=== PATIENT | male | born 1930 | race Caucasian/White ===

== ENCOUNTER 2017-11-17 11:08 | Inpatient (IN) | payer OTHER, MEDICARE ==
[~2017-11-17] VITALS: Ht 180.3 cm; Wt 63.2 kg
[~2017-11-17 11:08] MED LIST: AUGMENTIN 875-1 EACH PO; HYDROCHLOROTH12.5 M2 PO
--- NOTE | 2017-11-17 11:26 | ED UPPER/LOWER EXTREMITY COMPL ---
History of Present Illness General Chief Complaint: General Adult Stated Complaint: CELLULITIS OF L FOOT Source: patient, old records Exam Limitations: no limitations Vital Signs & Intake/Output Vital Signs & Intake/Output Vital Signs Date Time Temp Pulse Resp B/P B/P Pulse O2 O2 Flow FiO2 Mean Ox Delivery Rate 11/17 1121 96.9 127 16 152/68 98 Allergies Coded Allergies: No Known Allergies (10/18/17) Reconcile Medications Amoxicillin/Potassium Clav (Augmentin 875-125 Tablet) 875 MG-125 MG TABLET 1 TAB PO BID cellulitis Hydrochlorothiazide 12.5 MG TABLET 1 TAB PO DAILY HTN Triage Note: PT PRESENTS TO THE ER C/O LEFT BIG TOE PAIN. TOE IS RED AND SWOLLEN WITH NECROTIC TISSUE. PER PT HE WAS SEEN HERE IN THE ER AND SENT HOME WITH ANTIBIOTICS.. PT DID NOT MAKE FOLLOW UP APPOINTMENT WITH [facility] PER DC PAPER WORK. Triage Nurses Notes Reviewed? yes HPI: 87M PMH HTN, 30 days ago cut the tip of his left great toe with a scissor while trying to cut his toenails, presented to ED 3 days ago with erythema and warmth of the great toe and foot, given Augmentin, returns today with no improvement in erythema. Patient denies any pain, feels well otherwise, just notices swelling and erythema that is worse when he stands up. There is a 3cm eschar on the tip of his toe with no discharge present. He denies any systemic symptoms. Past History Travel History Traveled to [place] past 21 day No Medical History Any Pertinent Medical History? 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 No Review of Systems Review of Systems Constitutional: Reports: no symptoms. EENTM: Reports: no symptoms. Respiratory: Reports: no symptoms. Cardiovascular: Reports: no symptoms. Gastrointestinal/Abdominal: Reports: no symptoms. Genitourinary: Reports: no symptoms. Musculoskeletal: Reports: no symptoms. Skin: Reports: no symptoms. Neurological/Psychological: Reports: no symptoms. Hematologic/Endocrine: Reports: no symptoms. Immunological: Reports: no symptoms. All Other Systems: Reviewed and Negative Physical Exam Physical Exam General Appearance: well developed/nourished, no apparent distress, mild distress Head: atraumatic, normal appearance Eyes: Bilateral: normal appearance. Ears, Nose, Throat: hearing grossly normal Neck: normal inspection, supple Cardiovascular/Respiratory: regular rate/rhythm Back: normal inspection, normal range of motion Foot Left: 3cm eschar on tip, no discharge, erythema of entire great toe spreading to dorsal foot, +warmth, -tenderness, sensation intact, pulses intact, full ROM Foot Right: normal inspection, normal range of motion Skin: intact, normal color, warm/dry Lymphatic: no anterior cervical harsh Progress Differential Diagnosis: arterial insufficiency, cellulitis, CHF, compartment syndrome, contusion, dislocation, DVT, fracture, gout, septic arthritis, sprain, tendon injury Plan of Care: Orders Procedure Date/time Status EKG 11/17 1240 Active BLOOD CULTURE 11/17 112 Active COMPREHENSIVE METABOLIC PANEL 11/17 112 Complete CBC WITHOUT DIFFERENTIAL 11/17 112 Complete EKG 11/17 112 Active Current Medications Sig/Tiffanie Start time Last Medication Dose Stop Time Status Admin Cefazolin Sodium 1,000 MG ONCE ONE 11/17 1245 AC (Kefzol-Ancef Inj) 11/17 1246 Laboratory Tests 11/17/17 1144: Anion Gap 16, Estimated GFR 52 L, BUN/Creatinine Ratio 16.2, Glucose 216 H, Calcium 9.6, Total Bilirubin 0.8, AST 15 L, ALT 17 L, Alkaline Phosphatase 59, Total Protein 7.8, Albumin 4.6, Globulin 3.2, Albumin/Globulin Ratio 1.4, CBC w Diff NO MAN DIFF REQ, RBC 4.32 L, MCV 88.7, MCH 29.4, MCHC 33.1, RDW 13.5, MPV 8.3, Gran % 67.8, Lymphocytes % 23.9, Monocytes % 5.8, Eosinophils % 2.0, Basophils % 0.5, Absolute Granulocytes 5.7, Absolute Lymphocytes 2.0, Absolute Monocytes 0.5, Absolute Eosinophils 0.2, Absolute Basophils 0 Microbiology 11/17 1229 BLOOD: Blood Culture - RECD 11/17 1145 BLOOD: Blood Culture - RECD Departure Departure Disposition: STILL A PATIENT Condition: Stable Clinical Impression Primary Impression: Cellulitis of left foot Secondary Impressions: Failure of outpatient treatment, Hyperglycemia Referrals: Ash ALEX,Douglas Chacon (PCP/Family) Departure Forms: Customer Survey General Discharge Information Admission Note Spoke With: Zina ALEX,Franny Pittman Documentation of Exam: Documentation of any treatments & extenuating circumstances including Concerns Regarding Discharge (functional status, medication knowledge or non-compliance, living conditions, etc.) that warrant an admission rather than observation: LEFT TOE AND FOOT CELLULITIS FAILING OUTPATIENT ANTIBIOTICS WITH WORSENING ERYTHEMA OF THE FOOT, WITH TOE WOUND REQUIRING PODIATRY INTERVENTION, NO PRIOR HISTORY OF DIABETES WITH GLUCOSE 210 WILL REQUIRE WORKUP, WILL ADMIT FOR IV ANTIBIOTICS, PODIATRY CONSULT, POSSIBLE ENDOCRINE CONSULT, BLOOD CULTURES
[2017-11-17 12:00] LABS: ABSOLUTE BASOPHIL COUNT 0 /CUMM (0.0-0.2); ABSOLUTE EOSINOPHIL COUNT 0.2 /CUMM (0.0-0.7); ABSOLUTE GRANULOCYTE CT 5.7 /CUMM (1.4-6.5); ABSOLUTE MONOCYTE COUNT 0.5 /CUMM (0.10-0.60); BASOPHIL % 0.5 % (0.0-2.0); GRANULOCYTE % 67.8 % (42.2-75.2); HEMATOCRIT 38.3 % (42-52); MEAN CORPUSCULAR HGB 29.4 PG (27.0-31.0); MEAN CORPUSCULAR HGB CONC 33.1 G/DL (33.0-37.0); MEAN CORPUSCULAR VOLUME 88.7 FL (80.0-94.0); MEAN PLATELET VOLUME 8.3 FL (7.4-10.4); PLATELET COUNT 295 /CUMM (130-400); RBC DISTRIBUTION WIDTH 13.5 % (11.5-14.5); RED BLOOD CELL CT 4.32 /CUMM (4.70-6.10); WHITE BLOOD CELL COUNT 8.4 /CUMM (4.8-10.8)
--- NOTE | 2017-11-17 13:17 | History & Physical ---
Geoff ALEX,[facility] 11/17/17 1312: General Information and HPI MD Statement: I have seen and personally examined MARIANGEL BOOKER and documented this H&P. The patient is a 87 year old M who presented with a patient stated chief complaint of [LEFT GREAT TOE REDNESS AND SWELLING]. Source of Information: patient, family () Exam Limitations: no limitations, patient's age History of Present Illness: The patient is an 87-year-old man with a past medical history of hypertension, and previous gastric ulcer 5 years ago presents with worsening left great toe redness and swelling for 2 weeks. The patient sustained injury to his left great toe after he cut the tip off while trying to cut his toenails one month ago on 10/18/2017. He had no pain in the toe and the toe bled profusely according to patient and his was present. The ulcer did not heal and about 2 weeks ago he started to notice erythema and swelling of his left great toe. Account of these symptoms he presented to the ER 3 days ago and received by mouth Augmentin which she has been using consistently, however the surrounding toe redness and swelling has not resolved. Attributed is no discharge however his great toe has covered by a black scab. Of note patient has been having aching pain in his house when he walks for the past 7 months. He has not seen a medical doctor for over 20 years. He also has noticed a growth on his left cheek for the past 2 years. He denies fevers, chills, shortness of breath, cough, wheeze, palpitations or chest discomfort. He denies nausea, vomiting or change in bowel movements. He however has some intermittent burning sensation at the end of his urination for the past few months. He denies frequency polyuria but wakes up approximately 2 times a night to urinate. No hematuria. 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 Home Who Do You Live With? spouse Services at Home: None Smoking Status: Former Smoker (Quit 52 years ago) ETOH Use: denies use Illicit Drug Use: denies illicit drug use Functional Ability ADLs Independent: dressing, eating, toileting, bathing. 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 Denies: chills, fever, weakness. Exam & Diagnostic Data Last 24 Hrs of Vital Signs/I&O Vital Signs Date Time Temp Pulse Resp B/P B/P Pulse O2 O2 Flow FiO2 Mean Ox Delivery Rate 11/17 1322 97.9 102 18 161/72 98 Room Air 11/17 1121 96.9 127 16 152/68 98 Intake & Output 11/17 1600 11/17 0800 11/17 0000 Intake Total Output Total Balance Patient 145 lb Weight Weight Reported by Patient Measurement Method Physical Exam General Appearance Alert, Oriented X3, Cooperative, No Acute Distress Skin 3 cm ulcerated nodule with irregular edges on the left maxillary area below eyelid Skin Temp/Moisture Exam: Warm/Dry Sepsis Skin Exam (color): Normal for Ethnicity HEENT Atraumatic, PERRLA, EOMI, Mucous Membr. moist/pink Neck Supple, No JVD, No thryomegaly Lymphatic Cervical nl Cardiovascular Regular Rate, Normal S1, Normal S2, No Murmurs Lungs Clear to Auscultation, Normal Air Movement Abdomen Normal Bowel Sounds, Soft, No Tenderness, No Hepatospenomegaly, No Masses Neurological Normal Speech, Strength at 5/5 X4 Ext, Normal Tone, Cranial Nerves 3-12 NL, Reflexes 2+, Light touch sensation reduced in toes bilaterally, normal in rest of leg Extremities No Edema, Reduced dorsalis pedis pulses bilaterally, 2 cm X 2 cm ulcer on tip of left great toe involving distal nail bed. Ulcer is covered by black eschar Vascular Reduced bilateral dorsalis pedis pulses Last 24 Hrs of Labs/Gómez: Laboratory Tests 11/17/17 1144: Anion Gap 16, Estimated GFR 52 L, BUN/Creatinine Ratio 16.2, Glucose 216 H, Hemoglobin A1c Pending, Calcium 9.6, Total Bilirubin 0.8, AST 15 L, ALT 17 L, Alkaline Phosphatase 59, Total Protein 7.8, Albumin 4.6, Globulin 3.2, Albumin/ Globulin Ratio 1.4, CBC w Diff NO MAN DIFF REQ, RBC 4.32 L, MCV 88.7, MCH 29.4, MCHC 33.1, RDW 13.5, MPV 8.3, Gran % 67.8, Lymphocytes % 23.9, Monocytes % 5.8, Eosinophils % 2.0, Basophils % 0.5, Absolute Granulocytes 5.7, Absolute Lymphocytes 2.0, Absolute Monocytes 0.5, Absolute Eosinophils 0.2, Absolute Basophils 0 Microbiology 11/17 1229 BLOOD: Blood Culture - RECD 11/17 114 BLOOD: Blood Culture - RECD Diagnostic Data EKG Results Sinus rhythm. Heart rate [address] segment changes. QTc 460 MS Other Results SERVICE DATE: 11/14/17 EXAM TYPE: RAD - XRY-FOOT COMPLETE, LEFT EXAMINATION: XR FOOT, LEFT CLINICAL INFORMATION: Redness. Pain. COMPARISON: None TECHNIQUE: AP, lateral, and oblique views of the left foot. FINDINGS: No focal bony findings indicate infection. This bulky calcaneal posterior tuberosity spurring. No periosteal new bone formation. No soft tissue air. IMPRESSION: No plain radiographic evidence of osteomyelitis. Consider MRI as warranted clinically. Assessment/Plan Assessment: The patient is an 87-year-old man with a past medical history of hypertension and peptic ulcer treated with endoscopy and ? sclerotherapy injection 25 years ago was not seen a physician in 25 years. He presents with 2 weeks history of worsening left great toe erythema and swelling after suffering a cut to that toe that has not healed since one month ago. He has failed outpatient Augmentin therapy and will need to be admitted for IV antibiotics. In addition he has symptoms of peripheral vascular disease with claudication in his legs, and he also has elevated glucose consistent with undiagnosed diabetes mellitus. He will be admitted and evaluated by podiatry for his left big toe ulcer. In addition we'll obtain a vascular surgery consultation to assess his left foot blood supply. His blood pressure is elevated despite being on hydrochlorothiazide 12.5 mg daily and we will add additional blood pressure medication for better control. Problem list 1. Left toe cellulitis/Left toe nonhealing ulcer 2. Peripheral vascular disease 3. Diabetes mellitus 4. Hypertension 5. Acute kidney injury 6. Left facial lesion probably basal cell carcinoma Plan 1. Left toe cellulitis/left toe nonhealing ulcer * Admit to general medicine * Start IV Unasyn 3 g every 6 hours * Follow-up blood cultures * Podiatry consultation 2. Peripheral vascular disease * Vascular surgery consultation * Will defer imaging with Arterial doppler ultrasound vs CT angiogram with runoff to vascular surgeon * Start aspirin 81 mg daily * Check lipid panel in a.m. 3. Diabetes mellitus * Accu-Cheks 3 times a day before meals * NovoLog sliding scale * Check HbA1c 4. Hypertension * Start amlodipine 5 mg daily * Will switch to an ARB if patient's creatinine improves * Continue hydrochlorothiazide 12.5 mg daily 5. Acute kidney injury * Gentle hydration with IV normal saline at 50 mL an hour * Encourage liberal fluid intake * Repeat BEP to monitor creatinine in a.m. 6. 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 Hyperglycemia 2. Cellulitis of left foot 3. Failure of outpatient treatment 4. Avulsion of skin of toe Core Measures/Misc (05/06) Acute Coronary Syndrome ACS Diagnosis: No Congestive Heart Failure Congestive Heart Failure Diagnosis No Cerebrovascular Accident CVA/TIA Diagnosis: No VTE (View Protocol) VTE Risk Factors Vericose Veins No Mechanical VTE Prophylaxis d/t N/A MechProphylax Ordered No VTE Pharm Prophylaxis d/t NA PharmProphylax ordered Sepsis (View protocol) Sepsis Present: No Franny Izaguirre MD 11/17/17 1526: Attending MD Review Statement Attending Statement Attending MD Statement: examined this patient, discuss w/resident/PA/CASE MANAGEMENT ASSISTANT, agreed w/resident/PA/CASE MANAGEMENT ASSISTANT, discussed with family, reviewed EMR data (avail), reviewed images Attending Assessment/Plan: 87-year-old male past medical history of hypertension, has not seen a doctor in over 15 years. Recently moved from [place]. All of his current symptoms started after he accidentally cut off piece of his left great toe while cutting his nails on March 1. Showed up in the emergency room 4 days ago on November 14 with pain and swelling and was prescribed Augmentin. Returns with what appears to be an acute cellulitis in the setting of this ulcer on the left great toe. Given the failure of by mouth Augmentin will switch him to IV antibiotics. I don't have a suspicion for MRSA and I think we need to cover staph and strep given likely underlying diabetes. I am comfortable with IV Unasyn and its coverage after blood cultures obtained. The bigger issue is the underlying diabetes likely and likely peripheral arterial disease. He has poor pulses and has hyperglycemia. We'll check a hemoglobin A1c and put him on fingersticks with regular insulin sliding scale. We'll get vascular to see him, start him on baby aspirin and check his lipid panel. Ultimately I think he will benefit from an arb for his hypertension but now given the NORMA will stay with Norvasc and gentle hydration. DVT prophylaxis and Follow closely.
--- NOTE | 2017-11-17 14:36 | Admission Certification ---
Admission Certification Certification Statement - As attending physician, I certify that at the time of - admission, based on clinical presentation, severity of - symptoms, need for further diagnostic testing and - therapeutic interventions, and risk of adverse outcomes - without in-hospital treatment, in my clinical assessment, - this patient requires an acute hospital stay for a minimum - of two nights or longer. I have also considered psychsocial - factors such as support system, advanced age, financial - issues, cognitive issues, and failed out-patient treatments, - past re-admission history, safety of patient, and lack of - compliance as applicable. Specific rationale supporting this admission is: Acute cellulitis of the toe failed outpatient oral antibiotics
[2017-11-17 15:22] VITALS: BP 130/60
--- NOTE | 2017-11-17 16:14 | Cons- Podiatry ---
General Information and HPI Consulting Request Date of Consult: 11/17/17 Requested By: Zina ALEX,Franny Pittman History of Present Illness: Victor M is an 87-year-old male with a history of hypertension who presented to the ED 2 days ago for a complaint of redness and swelling to his left great toe, status post nail-cutting injury with a tuan. The patient returned today without improvement despite by mouth antibiotics and is now admitted for treatment of a left lower extremity cellulitis. The patient denies systemic signs of infection. Patient denies nausea, vomiting, fever chills. 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 Home Who Do You Live With? spouse Services at Home: None Smoking Status: Former Smoker (Quit 52 years ago) ETOH Use: denies use Illicit Drug Use: denies illicit drug use Functional Ability ADLs Independent: dressing, eating, toileting, bathing. Ambulation: cane Employment History Employment: Retired Profession/Employer: [email or web address] Review of Systems Review of Systems: Unremarkable except for that noted in his present illness Exam & Diagnostic Data Vital Signs and I&O Vital Signs Date Time Temp Pulse Resp B/P B/P Pulse O2 O2 Flow FiO2 Mean Ox Delivery Rate 11/17 1522 97.6 92 20 130/60 96 Room Air 11/17 1459 97.9 102 18 161/72 11/17 1322 97.9 102 18 161/72 98 Room Air 11/17 1121 96.9 127 16 152/68 98 Intake & Output 11/17 1600 11/17 0800 11/17 0000 11/16 1600 11/16 0800 11/16 0000 Intake Total Output Total Balance Patient 145 lb Weight Weight Reported by Patient Measurement Method Physical Exam: 2 cm x 0.5 cm necrotic eschar noted to the distal left great toe. Cellulitis noted to the dorsum of the foot extending to the ankle area. No active drainage noted from the wound. No crepitus or fluctuance identified. Pedal pulses nonpalpable. Assessment/Plan Assessment/Plan Necrotic ulcer left great toe with left lower Gaby cellulitis. Consider an x- ray of the left foot to rule out an osteomyelitis. Consider an arterial ultrasound of the left lower extremity and a vascular consult. For now, recommend Xeroform and a dry sterile dressing to the left great toe. IV antibiotics per medicine recommendations. Consult Acknowledgment - Thank you for your consult request. Attending MD Review Statement Attending Statement Attending MD Statement: examined this patient
--- NOTE | 2017-11-17 20:36 | Cons- Vascular Surgery ---
General Information and HPI Consulting Request Date of Consult: 11/17/17 Requested By: Franny Izaguirre MD Reason for Consult: Left toe infection Source of Information: patient, old records History of Present Illness: This is an 87 year-old male with a history of hypertension who was admitted with left toe nonhealing ulcer and surrounding cellulitis after failed outpatient antibiotic therapy. Patient reports injuring the top of his toe one month ago while attempting to clip his toenails with sheers. He was evaluated two day later in the ER because his toe had not stopped bleeding. He had bacitrican ointment, a dressing was applied and he was told to elevate his leg. He was also found to have hypertension and was started on hydrochlorothiazide. He returned to the ER 2 days ago after he noticed an increase in redness. He was provided with a 10 day course of Augmentin, however, the redness worsened and he returned back to the ER. He denies any pain or drainage, nausea, vomting, fever or chills. He reports ambulating independently without any assisted devices. Allergies/Medications Allergies: Coded Allergies: No Known Allergies (10/18/17) Home Med List: Amoxicillin/Potassium Clav (Augmentin 875-125 Tablet) 875 MG-125 MG TABLET 1 TAB PO BID cellulitis Hydrochlorothiazide 12.5 MG TABLET 1 TAB PO DAILY HTN Current Medications: Current Medications Sig/Tiffanie Start time Last Medication Dose Route Stop Time Status Admin Amlodipine Besylate 0 .STK-MED ONE 11/17 1500 DC PO Amlodipine Besylate 5 MG DAILY 11/17 1445 AC 11/17 PO 1459 Ampicillin Sodium/ 3,000 MG Q6 11/17 1800 AC 11/17 Sulbactam Sodium IV 1839 Sodium Chloride 100 ML Aspirin 0 .STK-MED ONE 11/17 1500 DC PO Aspirin Buffered 81 MG DAILY 11/17 1445 AC 11/17 PO 1459 Cefazolin Sodium 1,000 MG Q8H 11/17 2100 CAN IV Cefazolin Sodium 0 .STK-MED ONE 11/17 1251 DC .ROUTE Cefazolin Sodium 1,000 MG ONCE ONE 11/17 1245 DC 11/17 IV 11/17 1246 1258 Heparin Sodium 0 .STK-MED ONE 11/17 1500 DC (Porcine) .ROUTE Heparin Sodium 5,000 UNIT Q8 11/17 1413 AC 11/17 (Porcine) SC 1451 Hydrochlorothiazide 12.5 MG DAILY 11/18 1000 AC PO Hydrochlorothiazide 12.5 MG BID 11/17 2200 DC PO Insulin Aspart 0 TIDAC 11/17 1700 AC SC Sodium Chloride 1,000 ML Q20H 11/17 1415 AC 11/17 IV 1446 Past History Medical History Neurological: NONE EENT: NONE Cardiovascular: hypertension Respiratory: NONE Gastrointestinal: NONE Hepatic: NONE Renal: NONE Musculoskeletal: NONE Psychiatric: NONE Endocrine: NONE Blood Disorders: NONE Cancer(s): NONE [employer]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 Home Who Do You Live With? spouse Services at Home: None Smoking Status: Former Smoker (Quit 52 years ago) ETOH Use: denies use Illicit Drug Use: denies illicit drug use Functional Ability ADLs Independent: dressing, eating, toileting, bathing. Ambulation: cane Employment History Employment: Retired Profession/Employer: [employer] Review of Systems Review of Systems: Constitutional: Reports: no symptoms. EENTM: Reports: no symptoms. Respiratory: Reports: no symptoms. Cardiovascular: Reports: no symptoms. Gastrointestinal/Abdominal: Reports: no symptoms. Genitourinary: Reports: no symptoms. Musculoskeletal: Reports: no symptoms. Skin: Reports: see HPI. Neurological/Psychological: Reports: no symptoms. Hematologic/Endocrine: Reports: no symptoms. Immunological: Reports: no symptoms. All Other Systems: Reviewed and Negative Exam & Diagnostic Data Vital Signs and I&O Vital Signs Date Time Temp Pulse Resp B/P B/P Pulse O2 O2 Flow FiO2 Mean Ox Delivery Rate 11/17 1522 97.6 92 20 130/60 96 Room Air 11/17 1459 97.9 102 18 161/72 11/17 1322 97.9 102 18 161/72 98 Room Air 11/17 1121 96.9 127 16 152/68 98 Intake & Output 11/17 1600 11/17 0800 11/17 0000 11/16 1600 11/16 0800 11/16 0000 Intake Total Output Total Balance Patient 145 lb Weight Weight Reported by Patient Measurement Method Physical Exam: Gen - resting comfortably, accompained by his son in nad Skin - Left distal toe with a 2 cm x 0.5 cm necrotic eschar with surrounding cellulitis extending medially from the dorsum of the foot to the ankle, no active drainage, edema or induration noted, no palpable DP noted, palpable right DP, bilateral PT noted, no edema or calf tenderness B/L Last 24 Hours of Labs: Laboratory Tests 11/17 1144 Chemistry Sodium (137 - 145 mmol/L) 140 Potassium (3.5 - 5.1 mmol/L) 4.0 Chloride (98 - 107 mmol/L) 96 L Carbon Dioxide (22 - 30 mmol/L) 28 Anion Gap (5 - 16) 16 BUN (9 - 20 mg/dL) 21 H Creatinine (0.7 - 1.2 mg/dL) 1.3 H Estimated GFR (>60 ml/min) 52 L BUN/Creatinine Ratio (7 - 25 %) 16.2 Glucose (65 - 99 mg/dL) 216 H Hemoglobin A1c (4.2 - 5.8 %) Pending Calcium (8.4 - 10.2 mg/dL) 9.6 Total Bilirubin (0.2 - 1.3 mg/dL) 0.8 AST (17 - 59 U/L) 15 L ALT (21 - 72 U/L) 17 L Alkaline Phosphatase (< 127 U/L) 59 Total Protein (6.3 - 8.2 g/dL) 7.8 Albumin (3.5 - 5.0 g/dL) 4.6 Globulin (1.9 - 4.2 gm/dL) 3.2 Albumin/Globulin Ratio (1.1 - 2.2 %) 1.4 Hematology CBC w Diff NO MAN DIFF REQ WBC (4.8 - 10.8 /CUMM) 8.4 RBC (4.70 - 6.10 /CUMM) 4.32 L Hgb (14.0 - 18.0 G/DL) 12.7 L Hct (42 - 52 %) 38.3 L MCV (80.0 - 94.0 FL) 88.7 MCH (27.0 - 31.0 PG) 29.4 MCHC (33.0 - 37.0 G/DL) 33.1 RDW (11.5 - 14.5 %) 13.5 Plt Count (130 - 400 /CUMM) 295 MPV (7.4 - 10.4 FL) 8.3 Gran % (42.2 - 75.2 %) 67.8 Lymphocytes % (20.5 - 51.1 %) 23.9 Monocytes % (1.7 - 9.3 %) 5.8 Eosinophils % (0 - 5 %) 2.0 Basophils % (0.0 - 2.0 %) 0.5 Absolute Granulocytes (1.4 - 6.5 /CUMM) 5.7 Absolute Lymphocytes (1.2 - 3.4 /CUMM) 2.0 Absolute Monocytes (0.10 - 0.60 /CUMM) 0.5 Absolute Eosinophils (0.0 - 0.7 /CUMM) 0.2 Absolute Basophils (0.0 - 0.2 /CUMM) 0 Imaging Results: SERVICE DATE: 11/14/17 EXAM TYPE: RAD - XRY-FOOT COMPLETE, LEFT EXAMINATION: XR FOOT, LEFT CLINICAL INFORMATION: Redness. Pain. COMPARISON: None TECHNIQUE: AP, lateral, and oblique views of the left foot. FINDINGS: No focal bony findings indicate infection. This bulky calcaneal posterior tuberosity spurring. No periosteal new bone formation. No soft tissue air. IMPRESSION: No plain radiographic evidence of osteomyelitis. Consider MRI as warranted clinically. Assessment/Plan Assessment/Plan This is an 87 year-old male with a left great toe necrotic ulcer with cellulitis , without evidence of osteomyelitis on x-ray Recommend arterial ultrasound of the left lower extremity Continue IV Unasyn Continue podiatry care Will continue to follow Discussed with Dr. Schreiber who is in agreement Consult Acknowledgment - Thank you for your consult request.
[2017-11-17 22:19] VITALS: BP 132/60
[2017-11-18 06:29] VITALS: BP 160/72
--- NOTE | 2017-11-18 09:16 | PN- Housestaff ---
See Addendum Subjective Follow-up For: Left toe cellulitis Subjective: No overnight events. No fevers, chest pain, abdominal pain, or other complaints. He slept well. Review of Systems Constitutional: Reports: no symptoms. EENTM: Reports: no symptoms. Cardiovascular: Reports: no symptoms. Respiratory: Reports: no symptoms. Gastrointestinal: Reports: no symptoms. Genitourinary: Reports: no symptoms. Musculoskeletal: Reports: no symptoms. Skin: Reports: no symptoms. Neurological/Psychological: Reports: no symptoms. Hematologic/Endocrine: Reports: no symptoms. Immunologic/Allergic: Reports: no symptoms. Objective Last 24 Hrs of Vital Signs/I&O Vital Signs Date Time Temp Pulse Resp B/P B/P Pulse O2 O2 Flow FiO2 Mean Ox Delivery Rate 11/18 628 97.2 70 16 160/72 98 Room Air 11/17 2219 98.1 75 18 132/60 98 11/17 1522 97.6 92 20 130/60 96 Room Air 11/17 1459 97.9 102 18 161/72 11/17 1322 97.9 102 18 161/72 98 Room Air 11/17 1121 96.9 127 16 152/68 98 Intake & Output 11/18 1600 11/18 0800 11/18 0000 Intake Total 400 230 Output Total Balance 400 230 Intake, IV 400 130 Intake, Oral 100 Number 1 Bowel Movements Patient 65.998 kg 63.503 kg Weight Weight Bed scale Bed scale Measurement Method Physical Exam General Appearance: Alert, Oriented X3, Cooperative, No Acute Distress Cardiovascular: Regular Rate, Normal S1, Normal S2 Lungs: Clear to Auscultation Abdomen: Normal Bowel Sounds, Soft, No Tenderness Extremities: left toe wrapped Assessment/Plan Assessment: The patient is an 87-year-old man with a past medical history of hypertension and peptic ulcer treated with endoscopy and ? sclerotherapy injection 25 years ago was not seen a physician in 25 years. He presents with 2 weeks history of worsening left great toe erythema and swelling after suffering a cut to that toe that has not healed since one month ago. He has failed outpatient Augmentin therapy and will need to be admitted for IV antibiotics. In addition he has symptoms of peripheral vascular disease with claudication in his legs, and he also has elevated glucose consistent with undiagnosed diabetes mellitus. He will be admitted and evaluated by podiatry for his left big toe ulcer. In addition we'll obtain a vascular surgery consultation to assess his left foot blood supply. His blood pressure is elevated despite being on hydrochlorothiazide 12.5 mg daily and we will add additional blood pressure medication for better control. Problem list 1. Left toe cellulitis/Left toe nonhealing ulcer 2. Peripheral vascular disease 3. Diabetes mellitus 4. Hypertension 5. Acute kidney injury 6. Left facial lesion probably basal cell carcinoma Plan 1. Left toe cellulitis/left toe nonhealing ulcer * IV Unasyn 3 g every 6 hours * Follow-up blood cultures * Podiatry consultation 2. Peripheral vascular disease * Vascular surgery consultation * Start aspirin 81 mg daily * Check lipid panel in a.m. 3. Diabetes mellitus * Accu-Cheks 3 times a day before meals * NovoLog sliding scale * Check HbA1c 4. Hypertension * Start amlodipine 5 mg daily * Will switch to an ARB if patient's creatinine improves * Continue hydrochlorothiazide 12.5 mg daily 5. Acute kidney injury * Gentle hydration with IV normal saline at 50 mL an hour * Encourage liberal fluid intake * Repeat BEP to monitor creatinine in a.m. 6. Left facial lesion probably basal cell carcinoma * Will recommend outpatient follow-up with hotel engineer and refer patient on discharge\ Follow-up hemoglobin A1c an ultrasound today. We will also follow up podiatry and vascular surgery recommendations. DVT prophylaxis: Subcutaneous heparin Diet: Diabetic diet consistent carbohydrate 1 CODE STATUS: Full code Problem List: 1. Cellulitis of left foot Pain Ratin Pain Location: no Pain Goal: Remain pain free Pain Plan: see a/p Tomorrow's Labs & Rationales: bep
[2017-11-18 13:50] VITALS: BP 132/56
[2017-11-18 22:03] VITALS: BP 124/60
--- NOTE | 2017-11-19 05:11 | Event Note ---
Event Note Event Note: Embedded Case Manager was informed by radiologist that patient's ultrasound prelim reading was significant for left femoral-popliteal moderate to high-grade stenosis with no evidence of inflow disease. Called and spoke to [facility] radiology and was told that formal report is not available at this time as the image was read remotely. Informed Millie (Surgical PA).
[2017-11-19 06:43] VITALS: BP 140/70
--- NOTE | 2017-11-19 06:56 | PN- Housestaff ---
See Addendum Subjective Follow-up For: Left toe cellulitis Subjective: No ovenright events. Patient slept well last night. He does say that he has about 2 liquidy bowel movements a day since starting antibiotics. He doesn't have any chest pain, fever, night sweats, chills, shortness of breath, or other issues. Review of Systems Constitutional: Reports: no symptoms. EENTM: Reports: no symptoms. Cardiovascular: Reports: no symptoms. Respiratory: Reports: no symptoms. Gastrointestinal: Reports: see HPI. Genitourinary: Reports: no symptoms. Musculoskeletal: Reports: no symptoms. Skin: Reports: no symptoms. Neurological/Psychological: Reports: no symptoms. Hematologic/Endocrine: Reports: no symptoms. Immunologic/Allergic: Reports: no symptoms. Objective Last 24 Hrs of Vital Signs/I&O Vital Signs Date Time Temp Pulse Resp B/P B/P Pulse O2 O2 Flow FiO2 Mean Ox Delivery Rate 11/19 0643 97.9 80 20 140/70 98 Room Air 11/18 2203 98.3 83 20 124/60 98 Room Air 11/18 1350 98.6 83 20 132/56 97 Intake & Output 11/19 0800 11/19 0000 11/18 1600 Intake Total 225 1300 Output Total Balance 225 1300 Intake, IV 125 500 Intake, Oral 100 800 Patient 63.163 kg Weight Physical Exam General Appearance: Alert, Oriented X3, Cooperative, No Acute Distress Cardiovascular: Regular Rate, Normal S1, Normal S2 Lungs: Clear to Auscultation Abdomen: Normal Bowel Sounds, Soft, No Tenderness Extremities: No Edema, Normal Pulses, No Tenderness/Swelling Current Medications: Current Medications Sig/Tiffanie Start time Last Medication Dose Route Stop Time Status Admin Amlodipine Besylate 5 MG DAILY 11/17 1445 AC 11/18 PO 0959 Ampicillin Sodium/ 3,000 MG Q6 11/17 1800 AC 11/19 Sulbactam Sodium IV 0548 Sodium Chloride 100 ML Aspirin Buffered 81 MG DAILY 11/17 1445 AC 11/18 PO 0959 Heparin Sodium 5,000 UNIT Q8 11/17 1413 AC 11/19 (Porcine) SC 0548 Hydrochlorothiazide 12.5 MG DAILY 11/18 1000 AC 11/18 PO 0959 Insulin Aspart 0 TIDAC 11/17 1700 AC SC Sodium Chloride 1,000 ML Q20H 11/17 1415 DC 11/18 IV 0959 Last 24 Hrs of Lab/Gómez Results Last 24 Hrs of Labs/Mics: Laboratory Tests 11/18/17 1545: Urinalysis LIGHT H, Urine Color YEL, Urine Clarity CLDY H, Urine pH 7.0, Ur Specific Harrison 1.010, Urine Protein NEG, Urine Ketones NEG, Urine Nitrite NEG, Urine Bilirubin NEG, Urine Urobilinogen 0.2, Ur Leukocyte Esterase LARGE H, Ur Microscopic SEDIMENT EXAMINED, Urine RBC RARE, Urine WBC 50-75 H, Ur Epithelial Cells RARE, Urine Bacteria MOD H, Urine Mucus FEW, Urine Hemoglobin TRACE- INTACT H, Urine Glucose NEG 11/18/17 0810: Anion Gap 15, Estimated GFR > 60, BUN/Creatinine Ratio 15.5, Triglycerides 171 H, Cholesterol 195, LDL Cholesterol, Calc 125, HDL Cholesterol 36 L, Cholesterol/HDL Ratio 5 H Assessment/Plan Assessment: The patient is an 87-year-old man with a past medical history of hypertension and peptic ulcer treated with endoscopy and ? sclerotherapy injection 25 years ago was not seen a physician in 25 years here with left toe cellulitis after failing outpatient amoxicillin/clavulanic acid therapy. Problem list: 1. Left toe cellulitis 2. Peripheral vascular disease 3. Newly diagnosed diabetes mellitus 4. Acute kidney injury, resolved 5. 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 Hypertension 7. Diarrhea #Left toe cellulitis: Patient autoamputated the tip of his left great toe about a month ago and has been nonhealing since then. He came to the ER several times and was on Augmentin therapy but felt this. He is now on ampicillin/sulbactam and doing well. He has been afebrile without leukocytosis. We'll talk to Dr. Daly, he is not planning any surgical intervention at this time. Ultrasound did show moderate to severe femoral/popliteal disease with no definitive inflow disease. -Continue ampicillin/sulbactam -Appreciate podiatry recommendations, outpatient follow-up -Appreciate vascular surgery recognitions -Continue aspirin #Newly diagnosed Diabetes mellitus: Patient has not seen primary care but is coming with glucose that is significant elevated. Likely has type 2 diabetes mellitus that has been untreated. This is likely contributing to his poor wound healing. -Follow up hemoglobin A1c -Accu-Cheks 3 times a day before meals -NovoLog sliding scale -Outpatient primary care referral #Hypertension: Patient was previously on chlorothiazide but is still hypertensive. We will start him on DEON inhibitor given that he has diabetes. -Lisinopril 5 mg daily -continue hydrochlorothiazide 12.5 mg daily #Acute kidney injury: Resolved. This was likely prerenal azotemia. 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 It is likely basal cell carcinoma. He will likely need a biopsy. -Will recommend outpatient follow-up with venue manager and refer patient on discharge #Diarrhea: Patient has had 2 watery bowel movements per day since starting antibiotics. Likely antibiotic associated diarrhea. -Follow up C. difficile #Chronic medical problems: -Continue atorvastatin DVT prophylaxis with heparin Consistent carbohydrate one-day Full code Problem List: 1. Cellulitis of left foot Pain Ratin Pain Location: no Pain Goal: Remain pain free Pain Plan: see a/p Tomorrow's Labs & Rationales: none
--- NOTE | 2017-11-19 08:20 | ULTRASOUND REPORT ---
EXAMINATION: COLOR-FLOW DUPLEX IMAGING OF THE LEFT LOWER EXTREMITY ARTERIAL SYSTEM. VELOCITY MEASUREMENTS THROUGHOUT THE FEMORAL ARTERIES WITH PERIPHERAL ARTERIAL TESTING. 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 Peripheral arterial disease. Interventional Radiologist: Javon Salvador M.D., F.S.I.R., F.A.C.R. LEFT FEMORAL RUNOFF VELOCITIES: The left common femoral artery measures 116 cm/s. The left profunda femoral artery is 78 cm/s. Left proximal superficial femoral artery measures 57 cm/s. Mid superficial femoral artery is 58 cm/s. Distal left superficial femoral artery measures 33 cm/s. Left popliteal velocity measures 20 cm/s. The posterior tibial artery velocity measures 33 cm/s. The anterior tibial artery velocity measures 25 cm/s. The dorsalis pedis artery velocity measures 29 cm/s. The velocities appear decreased in the femoral artery, extending and worsening into the popliteal artery and tibial vessels. Diffuse scattered atherosclerotic plaque is present throughout the left lower extremity. IMPRESSION: 1. There is left lower extremity moderate-severe hemodynamically femoral-popliteal significant disease. There is no definite inflow disease demonstrated.
[2017-11-19] MEDS ORDERED: ATORVASTATIN CA10 M1 PO ×2 (10:04→15:40)
[2017-11-19] MEDS ORDERED: ASPIRIN EC81 M1 PO ×2 (10:04→15:40)
[2017-11-19] MEDS ORDERED: LISINOPRIL5 M1 PO ×2 (10:04→15:40)
--- NOTE | 2017-11-19 10:19 | Patient Discharge Instructions ---
Discharge Instructions General Discharge Information You were seen/treated for: Cellulitis Watch for these problems: Fever, chest pain, or shortness of breath Special Instructions: Please take all medications as directed. Please follow-up with primary care, ophthalmology, dermatology, and wound care. Diet Continue normal diet: No Recommended Diet: Diabetic Activity Full Activity/No Limits: Yes Acute Coronary Syndrome Inclusion Criteria At DC or during hospital stay patient has or had the following: ACS DIAGNOSIS No Discharge Core Measures Meds if any: Prescribed or Continued at Discharge Meds if any: NOT Prescribed or Continued at Discharge Congestive Heart Failure Inclusion Criteria At DC or during hospital stay patient has or had the following: CHF DIAGNOSIS No Discharge Core Measures Meds if any: Prescribed or Continued at Discharge Meds if any: NOT Prescribed or Continued at Discharge Cerebrovascular accident Inclusion Criteria At DC or during hospital stay patient has or had the following: CVA/TIA Diagnosis No Discharge Core Measures Meds if any: Prescribed or Continued at Discharge Meds if any: NOT Prescribed or Continued at Discharge Venous thromboembolism Inclusion Criteria VTE Diagnosis No VTE Type NONE VTE Confirmed by (Test) NONE Discharge Core Measures - Per Current guidelines, there needs to be overlap - treatment for the first 5 days of Warfarin therapy. - If discharged on Warfarin prior to 5 days of - overlap therapy, the patient will need to be - assessed for post discharge needs including - *Post discharge parental anticoagulation - *Warfarin and/or parental anticoagulation education - *Follow up date to check INR post discharge At least 5 days overlap therapy as Inpatient No Meds if any: Prescribed or Continued at Discharge Note: Overlap Therapy is Warfarin and Anticoagulant Meds if any: NOT Prescribed or Continued at Discharge
--- NOTE | 2017-11-19 14:24 | Discharge Summary ---
Visit Information Visit Dates Admission Date: 11/17/17 Discharge Date: 11/19/17 Hospital Course Course Attending Physician: Shyanne Toth MD Primary Care Physician: Douglas Aleman MD Hospital Course: The patient is an 87-year-old man with a past medical history of hypertension and peptic ulcer treated with endoscopy and ? sclerotherapy injection 25 years ago was not seen a physician in 25 years who presented here with left toe cellulitis after failing outpatient amoxicillin/clavulanic acid therapy. Problem list: 1. Left toe cellulitis 2. Peripheral vascular disease 3. Newly diagnosed diabetes mellitus 4. Acute kidney injury 5. 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 Hypertension 7. Diarrhea #Left toe cellulitis: Patient autoamputated the tip of his left great toe about a month ago and has been nonhealing since then. He came to the ER several times, x-ray showed no evidence of osteomyelitis. He was on Augmentin therapy but failed this and represented on November 17. He was started on ampicillin/sulbactam and podiatry and vascular surgery were consulted. Vascular note mentioned the folowin-year-old male with possible PAD and a dry first toe ulcer. Patient wishes to be discharged and this is reasonable giving his stable wound. This can be managed as an outpatient as per the patient's wishes. He will follow up this week for further imaging and possible discussion of arterial intervention. Patient will likely require lower extremity angiography/intervention. Recommend keeping the toe dry with Betadine. He remained afebrile without leukocytosis. Ultrasound did show moderate to severe femoral/popliteal disease with no definitive inflow disease. There were no surgical interventions indicated at the time. He should follow-up with podiatry and vascular surgery and continue Augmentin for the full course. Baby asa was also added. #Newly diagnosed Diabetes mellitus: Patient has not seen primary care but is coming with glucose that is significant elevated. Hemoglobin A1c is 6.1. This is likely contributing to his poor wound healing. He should follow up with primary care for further management. #Hypertension: Patient was previously on hydrochlorothiazide but is still hypertensive. He was started on lisinopril because he also has diabetes and she continues as an outpatient. He can have further management of this with primary care. #Acute kidney injury: Patient presented with mild acute kidney injury that has resolved with IV fluid hydration. This was likely prerenal azotemia. 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 It is likely basal cell carcinoma. He will likely need a biopsy. He is being given outpatient follow-up with Dr. Calvo, dermatology, and should see her for further care. #Diarrhea: Patient has had 2 watery bowel movements per day since starting antibiotics. Likely antibiotic associated diarrhea. We attempted to test for C. difficile but the patient decided that he wanted to leave today before it was sent. He is instructed to follow-up with primary care and seek medical attention if worsening of his diarrhea or if fever develops. #Chronic medical problems: His atorvastatin was continued. Allergies: Coded Allergies: No Known Allergies (10/18/17) Disposition Summary Disposition Principal Diagnosis: 1. Left toe cellulitis Additional Diagnosis: 2. Peripheral vascular disease 3. Newly diagnosed diabetes mellitus 4. Acute kidney injury 5. 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 Hypertension 7. Diarrhea Discharge Disposition: home or self care Discharge Instructions General Discharge Information Code Status: Full Code Patient's Diet: Diabetic diet Patient's Activity: As tolerated Follow-Up Instructions/Appts: Please take all medications as directed. Please follow-up with primary care, ophthalmology, dermatology, vascular surgery, and podiatry. Medications at Discharge Discharge Medications: Continue taking these medications: Hydrochlorothiazide (Hydrochlorothiazide) 12.5 MG TABLET 1 Tablet ORAL DAILY Qty = 30 Comments: Last Taken:11/19/17 Time:1130 AM Amoxicillin/Potassium Clav (Augmentin 875-125 Tablet) 875 MG-125 MG TABLET 1 Tablet ORAL TWICE DAILY Qty = 20 Comments: NOT GIVEN IN HOSPITAL. Start taking the following new medications: Atorvastatin Calcium (Atorvastatin Calcium) 10 MG TABLET 10 Milligram ORAL 5 PM Qty = 30 No Refills Instructions: . Comments: Last Taken:11/19/17 Time:4:30PM Lisinopril (Lisinopril) 5 MG TABLET 5 Milligram ORAL DAILY Qty = 30 No Refills Instructions: . Comments: NOT GIVEN IN HOSPITAL. Aspirin (Ecotrin*) 81 MG TABLET. 81 Milligram ORAL DAILY Qty = 30 No Refills Instructions: . Comments: Last Taken:11/19/17 Time:1130AM Copies To: Latrice ALEX,Paula Veras MD,Jose A Elkins; Malika GREEN,Herve; Abdoul ALEX,Javon; Umesh ALEX,Graciela Perdomo
[2017-11-19 14:27] VITALS: BP 150/68
--- NOTE | 2017-11-19 15:12 | Event Note ---
Event Note Event Note: Dr. Schreiber evaluated patient at bedside. Per Dr. Schreiber, atient can be discharged today with instructions to follow up with Dr. Schreiber as an outpatient later this week, or Sunday, for further evaluation and management.
--- NOTE | 2017-11-19 15:36 | Event Note ---
Event Note Event Note: Patient was evaluated this afternoon around 2 pm after he became agitated regarding medical team recommendation to keep him in the hospital for one more day. He stated that he wanted to go home today instead. Earlier in the morning, he had been evaluated by vascular surgeon Dr. Briceno and it was suggested that the patient would benefit from vascular surgery for his left lower extremity moderate-severe hemodynamically femoral-popliteal significant disease seen on his duplex ultrasound. His medical team also evaluated him during rounds in the morning and he complained of an episode of diarrhea while on unasyn. He was told he would need to give a sample to rule out C-difficile infection at that time. This afternoon around 2 pm, the patient became agitated when he was informed that we would like to watch him overnight and test his diarrhea and stool for C- difficile. He stated that he would like to be discharged today regardless of his diarrhea and threatened to leave against medical advice this afternoon when his son came by. Patient was also counseled about his right toe ulcer and the recommendation given for vascular surgery. He rejected this recommendation and stated that he would continue to use the antibiotics and dressings to heal the ulcer, but would never have surgery. He stated that "if the arteries to his foot get blocked, then he will return to the hospital to have the toe or foot taken off!". The patient expressed clear understanding of the risks of his medical decisions and had full capacity at the time of evaluation. Plan The patient will be discharged home today as per his request. He was given referrrals, including to a primary care provider, Dr. Pollard for follow up and to his vascular surgeon, Dr. Schreiber if he changes his mind regarding vascular intervention for his dry right toe ulcer.
--- NOTE | 2017-11-19 17:04 | PN- Vascular Surgery ---
Surgical Brief Attending Note Brief Attending Note: VASCULAR ATTENDING NOTE: Agree with PA no from 11/18-11/19. Briefly, 87-year-old male with a first toe wound following clipping his nails. He has not been closely followed by any medical doctor. The wound has worsened and is now necrotic. It is dry without obvious signs of infection or drainage. He denies any significant rest pain. Ultrasound demonstrates possible PAD. Physical exam : Reveals he is afebrile/vital signs are stable, extremity exam- demonstrates both lower extremities are well-perfused. I cannot appreciate a palpable pedal pulse. There is no erythema at the wound site or acute ischemia. The areas dry and necrotic. An ultrasound was done which shows possible femoropopliteal disease. Assessment is that this is an 87-year-old male with possible PAD and a dry first toe ulcer. Patient wishes to be discharged and this is reasonable giving his stable wound. This can be managed as an outpatient as per the patient's wishes. He will follow up this week for further imaging and possible discussion of arterial intervention. Patient will likely require lower extremity angiography/ intervention. Recommend keeping the toe dry with Betadine.
== END 2017-11-19 17:30 | disposition home health service (06) | DRG 603 ==
LOC: ERH 11:08 → 2NA 12:44 → ERHI 12:44 → ENRESERV 14:28 → ENTRNSPT 14:53 → EDTRNSPTSTS 14:59 → EDTRNSPT 14:59 → 2NA 15:04 → CMPTRNSPT 15:14 → 2NA 15:19
PROVIDERS: Internal Medicine
DX: L03.032 Cellulitis of left toe (principal); N17.9 Acute kidney failure, unspecified; I82.432 Acute embolism and thrombosis of left popliteal vein; E11.51 Type 2 diabetes mellitus with diabetic peripheral angiopathy without gangrene; E11.65 Type 2 diabetes mellitus with hyperglycemia; L97.529 Non-pressure chronic ulcer of other part of left foot with unspecified severity; I73.9 Peripheral vascular disease, unspecified; I10 Essential (primary) hypertension; Z88.1 Allergy status to other antibiotic agents; Z88.8 Allergy status to other drugs, medicaments and biological substances; L98.9 Disorder of the skin and subcutaneous tissue, unspecified; R19.7 Diarrhea, unspecified
CPT/HCPCS: 2NAP; 36415; 36592; 73630-LT; 81001; 82436; 87040; 93005; 93010; 96374; J0690; J1644; J3490

== ENCOUNTER 2018-02-23 09:48 | Emergency (ER) | payer OTHER, MEDICARE ==
[~2018-02-23] VITALS: Ht 180.3 cm; Wt 63.5 kg
[~2018-02-23 09:48] MED LIST changes: +ASPIRIN EC81 M1 PO; +ATORVASTATIN CA10 M1 PO; +LISINOPRIL5 M1 PO
--- NOTE | 2018-02-23 12:40 | RADIOLOGY REPORT ---
EXAMINATION: XR FOOT, LEFT CLINICAL INFORMATION: Osteomyelitis of left great toe. COMPARISON: 11/14/2017. TECHNIQUE: Left foot, 3 views FINDINGS: There is tissue loss/ulceration at the tip of the great toe. Associated osteolysis of the tuft of the distal phalanx, consistent with osteomyelitis. The interphalangeal joint and metatarsophalangeal joint of the great toe are intact. Bones have normal alignment throughout the foot. Peripheral vascular calcifications are seen in the visualized lower extremity and foot. There are calcaneal enthesophytes. IMPRESSION: Osteomyelitis of the tuft of the distal phalanx of the great toe.
--- NOTE | 2018-02-23 13:01 | ED ANKLE/FOOT INJURY COMPLAINT ---
History of Present Illness General Chief Complaint: Foot or Ankle Injury Stated Complaint: GREAT TOE PAIN ON LEFT FOOT Source: patient Exam Limitations: no limitations Vital Signs & Intake/Output Vital Signs & Intake/Output Vital Signs Date Time Temp Pulse Resp B/P B/P Pulse O2 O2 Flow FiO2 Mean Ox Delivery Rate 02/23 1344 98.4 88 18 144/68 98 Room Air Room Air 02/23 1002 98.0 104 20 160/68 98 Room Air Allergies Coded Allergies: No Known Allergies (10/18/17) Reconcile Medications Amoxicillin/Potassium Clav (Augmentin 875-125 Tablet) 875 MG-125 MG TABLET 1 TAB PO BID Infection Aspirin (Ecotrin*) 81 MG TABLET.DR 81 MG PO DAILY Heart health . Atorvastatin Calcium 10 MG TABLET 10 MG PO 1700 Cholesterol . Hydrochlorothiazide 12.5 MG TABLET 1 TAB PO DAILY HTN Lisinopril 5 MG TABLET 5 MG PO DAILY Blood pressure . Triage Note: C/O LEFT GREAT TOE SWELLING AND PAIN X WEEKS. Triage Nurses Notes Reviewed? yes HPI: 87-year-old male with a history of hypertension presents to emergency department complaining of left great toe pain and swelling. This has been present for a few months. States he was seen here a few months ago but left prior to being evaluated fully. He was admitted at that time. States he would like it to to be caught off and sutured as initially discussed. Symptoms started approximately 3-4 months ago after cutting his nail with sharp scissors. States his nail fell off and cause this infection. He has not been on antibiotics as of recently. Patient denies any fever, chills, nausea, vomiting. (Jose SOLANO,Willian) Past History Travel History Traveled to [place] past 21 day No Medical History Any Pertinent Medical History? 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 No (Jose SOLANO,Willian) Review of Systems Review of Systems Constitutional: Reports: no symptoms. EENTM: Reports: no symptoms. Respiratory: Reports: no symptoms. Cardiovascular: Reports: no symptoms. GI: Reports: no symptoms. Genitourinary: Reports: no symptoms. Musculoskeletal: Reports: no symptoms. Skin: Reports: see HPI. Neurological/Psychological: Reports: no symptoms. Hematologic/Endocrine: Reports: no symptoms. Immunologic/Allergic: Reports: no symptoms. All Other Systems: Reviewed and Negative (Jose SOLANO,Willian) Physical Exam Physical Exam General Appearance: well developed/nourished, mild distress Head: atraumatic Eyes: Bilateral: PERRL, EOMI. Ears, Nose, Throat: normal pharynx, normal ENT inspection, hearing grossly normal Neck: normal inspection, supple Cardiovascular/Respiratory: regular rate/rhythm Back: normal inspection Leg/Knee/Thigh Left: normal range of motion, normal inspection Leg/Knee/Thigh Right: normal range of motion, normal inspection Neuro/Vascular: DP Pulses 2+ Psychiatric: awake, alert, oriented x 3 Skin: Distal left great toe with necrotic eschar measuring approx 2 cm x 1 cm. No extending erythema, scant purulent discharge with palpation. Bilateral lover extremities with chronic venous stasis changes, no edema. (Jose SOLANO,Willian) Progress Differential Diagnosis: arterial insufficiency, cellulitis, septic arthritis, gout, fracture, Osteomylitis Plan of Care: Laboratory Tests 02/23/18 1123: Sodium Cancelled, Potassium Cancelled, Chloride Cancelled, Carbon Dioxide Cancelled, Anion Gap Cancelled, BUN Cancelled, Creatinine Cancelled, BUN/ Creatinine Ratio Cancelled, Glucose Cancelled, Calcium Cancelled, CBC w Diff Cancelled, WBC Cancelled, RBC Cancelled, Hgb Cancelled, Hct Cancelled, MCV Cancelled, MCH Cancelled, MCHC Cancelled, RDW Cancelled, Plt Count Cancelled, MPV Cancelled, ESR Westergren Cancelled Diagnostic Imaging: Viewed by Me: Radiology Read. Discussed w/RAD: Radiology Read. 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 COMPARISON: 11/14/2017. TECHNIQUE: Left foot, 3 views FINDINGS: There is tissue loss/ulceration at the tip of the great toe. Associated osteolysis of the tuft of the distal phalanx, consistent with osteomyelitis. The interphalangeal joint and metatarsophalangeal joint of the great toe are intact. Bones have normal alignment throughout the foot. Peripheral vascular calcifications are seen in the visualized lower extremity and foot. There are calcaneal enthesophytes. IMPRESSION: Osteomyelitis of the tuft of the distal phalanx of the great toe. DICTATED BY: Refugio Asher MD DATE/TIME DICTATED:02/23/181233 MAGICIAN/ILLUSIONIST:AZALEA DATE/TIME TRANSCRIBED:02/23/181233 CONFIDENTIAL, DO NOT COPY WITHOUT APPROPRIATE AUTHORIZATION. <Electronically signed in Other Vendor System> SIGNED BY: Refugio Asher MD 02/23/18 1240 Comments: Spoke with Dr. Daly DPKori, at 1300. Patient is refusing blood work and does not want to be admitted or recieve IV antibiotics. He recommended starting him on Augmentin and follow-up with the wound care center here at [place] on Sunday. Patient is an 87-year-old male with a history of a chronic necrotic eschar of his left great toe. He was recently admitted for this back in October but left prior to having a complete evaluation as he was tired of waiting. Symptoms have been present since then. Patient sister who is with the patient urged to be evaluated today. On exam patient has no significant tenderness in this area. There is no evidence of extending cellulitis. There is mild purulent discharge with palpation of the area. X-ray shows osteomyelitis of his left great toe. This is likely chronic. Patient has no symptoms having symptoms of infection. He was refusing blood work and he does not want to be admitted. I did discuss this case with Dr. Daly who actually saw the patient back in October. He recommended patient follow-up with him on Sunday morning in the wound care center. Patient is in agreement with this plan of care. He will be started on Augmentin. Patient did also mention he had a lesion on his left cheek. This should be evaluated further by his primary doctor. All questions were answered. I encouraged him to return to the emergency department if he should develop any new or worsening symptoms. He is in agreement plan of care. D/w Dr. Perdomo who evaluated the patient. (Willian Garcia PA-C) Departure Departure Disposition: HOME OR SELF CARE Condition: Stable Clinical Impression Primary Impression: Osteomyelitis of toe of left foot Referrals: Malika GREEN,Herve Aleman MD,Douglas Chacon (PCP/Family) Additional Instructions: Follow-up on Sunday with Dr. Daly at the wound care center. Take antibiotics as prescribed starting today. Please go over all results of today's visit with your primary care doctor. Contact your primary care doctor to let them know you were here in the emergency room. There may be nonspecific findings which may not be related to your visit today here in the emergency room but may require further evaluation and chronic monitoring by your primary care doctor. If you had a laceration today the chance of foreign body always remains. You should follow-up with your primary care doctor for recheck in 3-5 days for a wound check. If you had an x-ray done there is a chance that a fracture could have been missed on initial read and you should follow-up with your primary care doctor for repeat x-rays if symptoms persist. If your blood pressure was elevated here in the emergency room please have rechecked by [facility] primary care doctor within the next 48. If you were prescribed a narcotic here in the emergency room or any type of controlled substances you're not allowed to drive while taking this medication or operate any type of heavy machinery. Narcotics can make you feel lightheaded dizziness nausea and can cause constipation. You may need to picker feeder a stool softener. Thank you for choosing [facility] emergency room. Please return to the emergency room immediately if you have any other concerns worsening of symptoms. Departure Forms: Customer Survey General Discharge Information Prescriptions: Current Visit Scripts Amoxicillin/Potassium Clav (Augmentin 875-125 Tablet) 1 TAB PO BID #20 TAB (Willian Garcia PA-C) PA/STATEMENT REQUEST CLERK Co-Sign Statement Statement: ED Attending supervision documentation- x I saw and evaluated the patient. I have also reviewed all the pertinent lab results and diagnostic results. I agree with the findings and the plan of care as documented in the PA's/STATEMENT REQUEST CLERK's documentation. [] I have reviewed the ED Record and agree with the PA's/STATEMENT REQUEST CLERK's documentation. [] Additions or exceptions (if any) to the PAs/STATEMENT REQUEST CLERK's note and plan are summarized below: [] (Leanne ALEX,Nicko)
[2018-02-23] MEDS ORDERED: AUGMENTIN 875-1 EACH PO (13:06)
[2018-02-23 13:44] VITALS: BP 144/68
== END 2018-02-23 13:45 ==
LOC: ERH 09:48
DX: M86.172 Other acute osteomyelitis, left ankle and foot (principal)
CPT/HCPCS: 73630-LT

== ENCOUNTER 2018-02-28 11:43 | Inpatient (IN) | payer OTHER, MEDICARE ==
[~2018-02-28] VITALS: Ht 177.8 cm; Wt 63.5 kg
--- NOTE | 2018-02-28 11:57 | ED ANKLE/FOOT INJURY COMPLAINT ---
History of Present Illness General Chief Complaint: Lower Extremity Problems Stated Complaint: SIB DR RODRIGUEZ FOR INFECTED GREAT TOE LT HILARIO Source: patient, family, old records Exam Limitations: no limitations Vital Signs & Intake/Output Vital Signs & Intake/Output Vital Signs Date Time Temp Pulse Resp B/P B/P Pulse O2 O2 Flow FiO2 Mean Ox Delivery Rate 02/28 1231 Room Air Room Air 02/28 1149 97.8 110 18 170/83 97 Room Air Allergies Coded Allergies: No Known Allergies (10/18/17) Reconcile Medications Amoxicillin/Potassium Clav (Augmentin 875-125 Tablet) 875 MG-125 MG TABLET 1 TAB PO BID Infection Aspirin (Ecotrin*) 81 MG TABLET. 81 MG PO DAILY Heart health . Atorvastatin Calcium 10 MG TABLET 10 MG PO 1700 Cholesterol . Hydrochlorothiazide 12.5 MG TABLET 1 TAB PO DAILY HTN Lisinopril 5 MG TABLET 5 MG PO DAILY Blood pressure . Triage Note: RECEIVED 87 YO MALE SENT INTO ED BY DR GEE FOR LEFT GREAT TOE INFECTION. PT STATES L TOE PROBLEMS X FEW MONTHS. PT WAS SEEN HERE IN [facility] ED ON 02/23/18 AND DX WITH OSTEOMYELITIS. PT CURRENTLY ON ANTIBIOTICS. PT REPORTS WORSENING PAIN. Triage Nurses Notes Reviewed? yes Occurred: SEVERAL MONTHS Duration: week(s): (MONTHS), constant, continues in ED, getting worse Timing: single episode today Severity: moderate, severe Severity Numbers: 8 Pain/Injury Location: Left: Foot, 1st toe. Method of Injury: unknown No Modifying Factors: none Modifying Factors: Worsens With: movement. Associated Symptoms: swelling, redness HPI: 87-year-old male history of hypertension, peripheral vascular disease, PRE- diabetes presents for evaluation of a painful ulceration over the left great toe. This ulceration is at present for several months getting worse. He was recently seen in the emergency department less than a week ago diagnosed with osteomyelitis in that left great toe. He was placed on Augmentin which she has been taking but feels like the pain is continuing to progress in getting worse. He is able to walk. There's been no fever. He sees Dr. Gee who sent him in for further evaluation and likely surgery. Patient also has history of peripheral vascular disease. He quit smoking many years ago. He is a prediabetic. Does not use insulin. (Mikael ORTEZ,Angel) Past History Travel History Traveled to [place] past 21 day No Medical History Any Pertinent Medical History? 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 No (Angel Ramesh) Review of Systems Review of Systems Constitutional: Reports: no symptoms. EENTM: Reports: no symptoms. Respiratory: Reports: no symptoms. Cardiovascular: Reports: no symptoms. GI: Reports: no symptoms. Genitourinary: Reports: no symptoms. Musculoskeletal: Reports: see HPI, joint pain, joint swelling. Skin: Reports: see HPI (ULCERATION). Neurological/Psychological: Reports: no symptoms. Hematologic/Endocrine: Reports: no symptoms. Immunologic/Allergic: Reports: no symptoms. All Other Systems: Reviewed and Negative (Angel Ramesh) Physical Exam Physical Exam General Appearance: well developed/nourished, no apparent distress, alert, awake Head: atraumatic, normal appearance Eyes: Bilateral: normal appearance, PERRL, EOMI. Ears, Nose, Throat: normal pharynx, normal ENT inspection, hearing grossly normal Neck: normal inspection, supple, full range of motion Cardiovascular/Respiratory: normal breath sounds, normal peripheral pulses, regular rate/rhythm, no respiratory distress Back: normal inspection, normal range of motion Leg/Knee/Thigh Left: normal range of motion, normal inspection Leg/Knee/Thigh Right: normal range of motion, normal inspection Ankle Left: normal inspection, normal range of motion Ankle Right: normal inspection, normal range of motion Foot Left: normal range of motion, THERE IS A ULCERATED LESION OVER THE DISTAL SEGMENT OF THE LEFT GREAT TOE. tHERE IS FOUL-SMELLING PURULENT DISCHARGE PRESENT. rANGE OF MOTION OF THE TOE IS INTACT. dOES NOT APPEAR TO BE SPREADING ERYTHEMA, 1+ DORSALIS PEDIS Foot Right: normal inspection, normal range of motion, 1+ DORSALIS PEDIS PULSE Neuro/Vascular: normal motor function, normal sensation Tendon: normal tendon function Psychiatric: awake, alert, oriented x 3 Skin: intact, normal color, warm/dry (Black PA,Angel) Progress Differential Diagnosis: DVT, arterial insufficiency, cellulitis, septic arthritis, gout, fracture, dislocation, sprain, contusion, OSTEOMYELITIS Plan of Care: Orders Procedure Date/time Status Regular Diet 02/28 L Active LACTIC ACID 02/28 1504 Active ED Holding Orders 02/28 1328 Active Admit to inpatient 02/28 1328 Active Vital Signs 02/28 1328 Active Code Status 02/28 1328 Active Patient Data 02/28 1327 Active BLOOD CULTURE 02/28 1204 Active TROPONIN LEVEL 02/28 1204 Complete PARTIAL THROMBOPLASTIN TIME 02/28 1204 Complete PROTHROMBIN TIME 02/28 1204 Complete LACTIC ACID 02/28 1204 Complete WESTERGREN SED RATE 02/28 1204 Active C-REACTIVE PROTEIN 02/28 1204 Complete COMPREHENSIVE METABOLIC PANEL 02/28 1204 Complete CBC WITHOUT DIFFERENTIAL 02/28 1204 Active EKG 02/28 1204 Active TYPE & SCREEN (NOT X-MATCH) 02/28 1204 Complete Current Medications Sig/Tiffanie Start time Last Medication Dose Stop Time Status Admin Acetaminophen 1,000 MG ONCE ONE 02/28 1330 AC (Ofirmev) 02/28 1344 N/A 1 UNIT (No Carrier) Sodium Chloride 1,000 ML BOLUS ONE 02/28 1330 AC 02/28 (Normal Saline 0.9%) 02/28 1429 1327 Laboratory Tests 02/28/18 1225: Anion Gap 13, Estimated GFR 57 L, BUN/Creatinine Ratio 13.3, Glucose 153 H, Lactic Acid 2.1, Calcium 9.3, Total Bilirubin 0.5, AST 15 L, ALT 21, Alkaline Phosphatase 59, Troponin I < 0.01, C-Reactive Prot, Quant < 0.5, Total Protein 7.2, Albumin 4.0, Globulin 3.2, Albumin/Globulin Ratio 1.3, PT 12.6 H, INR 1.15 , APTT 29, CBC w Diff NO MAN DIFF REQ, RBC 4.08 L, MCV 87.7, MCH 29.5, MCHC 33.7, RDW 13.9, MPV 8.0, Gran % 65.4, Lymphocytes % 24.6, Monocytes % 6.7, Eosinophils % 2.9, Basophils % 0.4, Absolute Granulocytes 4.4, Absolute Lymphocytes 1.7, Absolute Monocytes 0.5, Absolute Eosinophils 0.2, Absolute Basophils 0, ESR Westergren Pending Microbiology 02/28 1242 BLOOD: Blood Culture - RECD 02/28 1225 BLOOD: Blood Culture - RECD Patient is here with osteomyelitis of the great toe. Currently on oral antibiotics but is getting worse. He is afebrile. Spoke with Dr. Gee was to bring him to the OR tomorrow. Dr. Schreiber from vascular also consult for an angioplasty due to peripheral vascular disease. Labs ordered. Dr. Gee was to hold antibiotics. See previous x-ray and arterial ultrasounds below. Patient will be admitted to medicine for further evaluation and treatment. Case discussed with Dr. Maurer he agrees. Diagnostic Imaging: Viewed by Me: Radiology Read, Ultrasound. Discussed w/RAD: Radiology Read, Ultrasound. Radiology Impression: PATIENT: MARIANGEL BOOKER PRESENT AGE: 87 PATIENT ACCOUNT NO: [id number] : 31 LOCATION: [facility] ORDERING PHYSICIAN: Willian Garcia PA-C SERVICE DATE: 02/23/18 EXAM TYPE: RAD - XRY -FOOT COMPLETE, LEFT EXAMINATION: XR FOOT, LEFT CLINICAL INFORMATION: Osteomyelitis of left great toe. COMPARISON: 11/14/2017. TECHNIQUE: Left foot, 3 views FINDINGS: There is tissue loss/ulceration at the tip of the great toe. Associated osteolysis of the tuft of the distal phalanx, consistent with osteomyelitis. The interphalangeal joint and metatarsophalangeal joint of the great toe are intact. Bones have normal alignment throughout the foot. Peripheral vascular calcifications are seen in the visualized lower extremity and foot. There are calcaneal enthesophytes. IMPRESSION: Osteomyelitis of the tuft of the distal phalanx of the great toe. DICTATED BY: Refugio Asher MD DATE/TIME DICTATED:02/23/181233 LOG ROLLER:AZALEA DATE/TIME TRANSCRIBED:02/23/181233 CONFIDENTIAL, DO NOT COPY WITHOUT APPROPRIATE AUTHORIZATION. <Electronically signed in Other Vendor System> SIGNED BY: Refugio Asher MD 02/23/18 1240 Initial ED EKG: normal sinus rhythm, no ST T wave changes Prior EKG: unchanged Comments: Arterial ultrasound from November PATIENT: MARIANGEL BOOKER PRESENT AGE: 87 PATIENT ACCOUNT NO: [id number] : 31 LOCATION: [facility] ORDERING PHYSICIAN: Juwan Mckeon MD SERVICE DATE: 11/18/17- EXAM TYPE: US - US-DUPLEX SCAN LOWER EXT ARTER EXAMINATION: COLOR-FLOW DUPLEX IMAGING OF THE LEFT LOWER EXTREMITY ARTERIAL SYSTEM. VELOCITY MEASUREMENTS THROUGHOUT THE FEMORAL ARTERIES WITH PERIPHERAL ARTERIAL TESTING. 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 Peripheral arterial disease. Interventional Radiologist: Javon Salvador M.D., F.S.I.R., F.A.C.R. LEFT FEMORAL RUNOFF VELOCITIES: The left common femoral artery measures 116 cm/s. The left profunda femoral artery is 78 cm/s. Left proximal superficial femoral artery measures 57 cm/s. Mid superficial femoral artery is 58 cm/s. Distal left superficial femoral artery measures 33 cm/s. Left popliteal velocity measures 20 cm/s. The posterior tibial artery velocity measures 33 cm/s. The anterior tibial artery velocity measures 25 cm/s. The dorsalis pedis artery velocity measures 29 cm/s. The velocities appear decreased in the femoral artery, extending and worsening into the popliteal artery and tibial vessels. Diffuse scattered atherosclerotic plaque is present throughout the left lower extremity. IMPRESSION: 1. There is left lower extremity moderate-severe hemodynamically femoral-popliteal significant disease. There is no definite inflow disease demonstrated. DICTATED BY: Javon Salvador MD DATE/TIME DICTATED:11/19/17738 LOG ROLLER:AZALEA DATE/TIME TRANSCRIBED:11/19/17738 CONFIDENTIAL, DO NOT COPY WITHOUT APPROPRIATE AUTHORIZATION. <Electronically signed in Other Vendor System> SIGNED BY: Javon Salvador MD 0820 (Angel Ramesh) Departure Departure Disposition: STILL A PATIENT Condition: Stable Clinical Impression Primary Impression: Osteomyelitis Qualifiers: Osteomyelitis type: acute hematogenous Osteomyelitis location: foot Laterality: left Qualified Code: M86.072 - Acute hematogenous osteomyelitis, left ankle and foot Secondary Impressions: Peripheral vascular disease Referrals: Douglas Aleman MD Departure Forms: Customer Survey General Discharge Information Admission Note Spoke With: Gabe Gray MD Documentation of Exam: Documentation of any treatments & extenuating circumstances including Concerns Regarding Discharge (functional status, medication knowledge or non-compliance, living conditions, etc.) that warrant an admission rather than observation: [ Podiatry, SURGICAL debridement of the toe, IV antibiotics, vascular consult, angioplasty, serial labs, case management, physical therapy] (Angel Ramesh) PA/INTEGRATIVE MEDICINE PHYSICIAN Co-Sign Statement Statement: ED Attending supervision documentation- [X] I saw and evaluated the patient. I have also reviewed all the pertinent lab results and diagnostic results. I agree with the findings and the plan of care as documented in the PA's/INTEGRATIVE MEDICINE PHYSICIAN's documentation. [X] I have reviewed the ED Record and agree with the PA's/INTEGRATIVE MEDICINE PHYSICIAN's documentation. [] Additions or exceptions (if any) to the PAs/INTEGRATIVE MEDICINE PHYSICIAN's note and plan are summarized below: [Patient has osteomyelitis and will require or debris.. Patient will then need vascular surgery consult for possible angioplasty.] (Erasto ALEX,Juwan Elkins)
[2018-02-28 12:40] LABS: ABSOLUTE BASOPHIL COUNT 0 /CUMM (0.0-0.2); ABSOLUTE EOSINOPHIL COUNT 0.2 /CUMM (0.0-0.7); ABSOLUTE GRANULOCYTE CT 4.4 /CUMM (1.4-6.5); ABSOLUTE LYMPH COUNT 1.7 /CUMM (1.2-3.4); ABSOLUTE MONOCYTE COUNT 0.5 /CUMM (0.10-0.60); BASOPHIL % 0.4 % (0.0-2.0); EOSINOPHIL % 2.9 % (0-5); GRANULOCYTE % 65.4 % (42.2-75.2); HEMATOCRIT 35.8 % (42-52); MEAN CORPUSCULAR HGB 29.5 PG (27.0-31.0); MEAN CORPUSCULAR HGB CONC 33.7 G/DL (33.0-37.0); MEAN CORPUSCULAR VOLUME 87.7 FL (80.0-94.0); PLATELET COUNT 271 /CUMM (130-400); RBC DISTRIBUTION WIDTH 13.9 % (11.5-14.5); RED BLOOD CELL CT 4.08 /CUMM (4.70-6.10); WHITE BLOOD CELL COUNT 6.8 /CUMM (4.8-10.8)
[2018-02-28 12:45] LABS: PT 12.6 SEC (9.4-12.5); PTT 29 SEC (25-37)
--- NOTE | 2018-02-28 13:36 | History & Physical ---
Roc Reyes 02/28/18 1335: General Information and HPI MD Statement: I have seen and personally examined MARIANGEL BOOKER and documented this H&P. The patient is a 87 year old M who presented with a patient stated chief complaint of osteomyelitis of great left toe, sent in by Dr Daly. Source of Information: patient, family Exam Limitations: no limitations History of Present Illness: HPI: Patient has been having problem with this toe for the past several months, starting in September. Patient was clipping his toenails with "wire cutters "and accidentally took off part of the toe. The wound has not healed, and he was seen here at [facility] on 02/23/18 and diagnosed with osteomyelitis. Patient was started on Augmentin, but denies having taken them. Patient is now returned to [facility] on the advice of Dr. Daly for surgical intervention. At baseline the patient ambulates independently. He states he does not have any pain in the toe or any feeling at all. Patient does endorse occasional calf pain in the left foot, especially when he has been walking. 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 Relation not specified for: FH: myocardial infarction Psychosocial History Who Do You Live With? spouse Services at Home: None Smoking Status: Never Smoked ETOH Use: occasional use Illicit Drug Use: denies illicit drug use Functional Ability ADLs Independent: dressing, eating, toileting, bathing. Ambulation: cane Review of Systems Review of Systems Constitutional: Reports: no symptoms. EENTM: Reports: no symptoms. Cardiovascular: Reports: no symptoms. Respiratory: Reports: no symptoms. GI: Reports: no symptoms. Genitourinary: Reports: no symptoms. Musculoskeletal: Reports: no symptoms. Skin: Reports: moles. Neurological/Psychological: Reports: no symptoms. Hematologic/Endocrine: Reports: no symptoms. Immunologic/Allergic: Reports: no symptoms. Exam & Diagnostic Data Last 24 Hrs of Vital Signs/I&O Vital Signs Date Time Temp Pulse Resp B/P B/P Pulse O2 O2 Flow FiO2 Mean Ox Delivery Rate 02/28 1231 Room Air Room Air 02/28 1149 97.8 110 18 170/83 97 Room Air Intake & Output 02/28 1600 02/28 0800 02/28 0000 Intake Total 0 Output Total Balance 0 Intake, Oral 0 Patient 140 lb Weight Weight Estimated Measurement Method Physical Exam General Appearance Alert, Oriented X3, Cooperative, No Acute Distress Skin No Rashes, No Breakdown Skin Temp/Moisture Exam: Warm/Dry HEENT Atraumatic, PERRLA, EOMI Neck Supple, No JVD, No thryomegaly, +2 Carotid Pulse wo Bruit Cardiovascular Regular Rate, Normal S1, Normal S2, No Murmurs Lungs Clear to Auscultation, Normal Air Movement Abdomen Soft, No Tenderness, No Hepatospenomegaly Neurological Normal Speech, Strength at 5/5 X4 Ext, Normal Tone, Sensation Intact (excluding left great toe) Extremities No Clubbing, No Cyanosis, No Edema, ulcer on left great toe, missing toenail on left great toe Vascular Normal Pulses, Pulses Symmetrical Last 24 Hrs of Labs/Gómez: Laboratory Tests 02/28/18 1515: Lactic Acid 1.5 02/28/18 1225: Anion Gap 13, Estimated GFR 57 L, BUN/Creatinine Ratio 13.3, Glucose 153 H, Hemoglobin A1c 5.7, Lactic Acid 2.1, Calcium 9.3, Total Bilirubin 0.5, AST 15 L , ALT 21, Alkaline Phosphatase 59, Troponin I < 0.01, C-Reactive Prot, Quant < 0.5, Total Protein 7.2, Albumin 4.0, Globulin 3.2, Albumin/Globulin Ratio 1.3, PT 12.6 H, INR 1.15, APTT 29, CBC w Diff NO MAN DIFF REQ, RBC 4.08 L, MCV 87.7 , MCH 29.5, MCHC 33.7, RDW 13.9, MPV 8.0, Gran % 65.4, Lymphocytes % 24.6, Monocytes % 6.7, Eosinophils % 2.9, Basophils % 0.4, Absolute Granulocytes 4.4, Absolute Lymphocytes 1.7, Absolute Monocytes 0.5, Absolute Eosinophils 0.2, Absolute Basophils 0, ESR Westergren 20 H Microbiology 02/28 1242 BLOOD: Blood Culture - RECD 02/28 1225 BLOOD: Blood Culture - RECD Diagnostic Data Other Results Foot x-ray from 02/23/18 shows findings consistent with osteomyelitis of the left great toe Assessment/Plan Assessment: 87 year old male who comes to [facility] for surgical treatment of left great toe osteomyelitis. Problem list/plan: Osteomyelitis of the big toe - Admit to general medicine, vitals per protocol -Consult placed to vascular surgery to evaluate for peripheral vascular disease -Blood cultures drawn in the ER, awaiting results -Pain per pathway PMH of HTN, PVD, pre-diabetes -consult placed to vascular surgery to evaluate for need for intervention -Accu-Cheks 3 times daily before meals -Patient states he does not take any of his recorded home medications; will not be continued Diet: Diabetic, pending NPO at midnight DVT Prophylaxis: Subcu Curry Patient is full code As Ranked By This Provider Problem List: 1. Peripheral vascular disease 2. Osteomyelitis of toe of left foot Core Measures/Misc (05/06) Acute Coronary Syndrome ACS Diagnosis: No Congestive Heart Failure Congestive Heart Failure Diagnosis No Cerebrovascular Accident CVA/TIA Diagnosis: No VTE (View Protocol) VTE Risk Factors Age>40 No Mechanical VTE Prophylaxis d/t N/A MechProphylax Ordered No VTE Pharm Prophylaxis d/t NA PharmProphylax ordered Sepsis (View protocol) Sepsis Present: No If YES complete Sepsis Event Note If YES complete Sepsis Event Note Letty Paz 02/28/18 1351: Core Measures/Misc (05/06) Sepsis (View protocol) If YES complete Sepsis Event Note If YES complete Sepsis Event Note Resident Review Statement Resident Statement: examined this patient, discussed with jewelry internship, agreed with jewelry internship, discussed with family, reviewed EMR data (avail), discussed with nursing , discussed with case mgmt, reviewed images, amended to note Other Findings: Mr. Booker is a 87yo M w/ PMH of HTN, PVD, Pre-diabetes, was sent in by Dr. Larry for a painful ulceration over the left great toe cellulitis, which now turned into osteomyelitis on 02/23 ER visit per foot x-ray. Dr. Larry already on board and planned for OR in the AM. Patient stated all his left great toe problem started 09/2017 when he cut the nail and tore the skin and later the nail off. He was admitted in 10/2017 for developed cellulitis, underwent duplex by vascular surgeon however no active intervention at that point. Patient was prescribed take-home meds including aspirin, Lipitor, lisinopril, HCTZ, however patient was noncompliant with all his medication. Patient does not see any PCP outside for an bilingual secretary/heart doctors, but only seen Dr. Robles recently. He was sending by Dr. Daly today after recent ER visit on 2017, that he was prescribed to take home with Augmentin, however he felt the pill was giving him diarrhea and he stopped taking them. Patient was told that Dr. Robles was planning on great toe amputation/IND. During our clinical interaction, patient denied recent travel/sick contacts, fever/lightheadedness/diaphoresis/night sweat/weight change/cough/SOB/Chest Pain /Palpitation/Abdominal pain/bowel movement or urinary abnormality, or other skin /musculoskeletal/neurological/mood disorders, or dietary/appetite change. -Smoking: Never smoker -Alcohol: social -Rec Drugs: denied On admission, Vitals: Stable afebrile, tachycardia 110, BP 170/83, 97% on room air Physical exam -Gen.: AO x3, cooperative, no distress, -HEENT: NCAT, PERRL, EOMI, anicteric sclera, moist mucous membranes -Neck: Supple, no JVD, trachea midline, mild accessory respiratory muscle use -Cardio: Normal S1/S2 without significant murmurs/gallops/rubs -Pulmonary: grossly normal air movement w/ clear auscultation -Abdomen: Soft, nontender, nondistended, bowel sounds intact -Neuro: Awake and alert, cranial nerves II through XII grossly intact. Strength 5/5 in all extremities. Reflex WNL. -Extremity: Left great toe ulceration, dry/no discharge/non-tender on pressin. Sensations grossly intact BLEs, however numbness of left heel per patient. No cyanosis/clubbing/edema. -CBC: No leukocytosis, H/H 12.1/35.8 at baseline, PT/INR 12.6/1.5 -BMP: Unremarkable, except CR 1.2 at baseline. -Foot x-ray 02/23: Osteomyelitis of the tuft of the distal phalanx of the great toe. -EKG: NSR w/ HR 99. -Interventions in ER: IV acetaminophen 1, normal saline bolus 1 Problem list/Assessment/Hospital Course: #Osteomyelitis of left great toe #mild normacytic anemia #PMH of HTN, PVD, Pre-diabetes - Admit to general medicine, vitals per protocol - Recheck HbA1c, prev was 6.1. Continue accucheck TIDAC/HS today to assess need of Novolog SS - Will maintain on fluid IVF after NPO started tonight - RCRI 0, low risk for OR. - will PT/OT post-op - Hold off antibiotics pending OR culture - Will continue home meds - Appreciated Dr. Larry consult, pending OR in the AM. - Pending vascular consult post-OR for potential intervention in concern of non- healing ulcer due to prolonged decreased blood supply. - Keep NPO tonight. - Pain per pathway. DVT prophylaxis Pharm PPX + ALPS Diabetic Diet, pending NPO starting midnight IV Access: Peripheral IV Full Code Shayy Mayo 02/28/18 1419: Core Measures/Misc (05/06) Sepsis (View protocol) If YES complete Sepsis Event Note If YES complete Sepsis Event Note Attending MD Review Statement Attending Statement Attending MD Statement: examined this patient, discuss w/resident/PA/ARMAMENT MECHANIC, agreed w/resident/PA/ARMAMENT MECHANIC, discussed with family, reviewed EMR data (avail), discussed with nursing, discussed with case mgmt, reviewed images, amended to note Attending Assessment/Plan: Patient admitted with left foot osteomyelitis. Podiatry consult and plan for OR as per podiatry. Hold abx and obtain wound OR cultures. RISS and tittrate insulin as needed. NPO past midnight. Rest of plan as above. Attending MD Review Statement Attending Statement Attending MD Statement: examined this patient, discuss w/resident/PA/ARMAMENT MECHANIC, agreed w/resident/PA/ARMAMENT MECHANIC, discussed with family, reviewed EMR data (avail), discussed with nursing, discussed with case mgmt, reviewed images, amended to note Attending Assessment/Plan: Patient admitted with left foot osteomyelitis. Podiatry consult and plan for OR as per podiatry. Hold abx and obtain wound OR cultures. RISS and tittrate insulin as needed. NPO past midnight. Rest of plan as above. Attending MD Statement: examined this patient, discuss w/resident/PA/ARMAMENT MECHANIC, agreed w/resident/PA/ARMAMENT MECHANIC, discussed with family, reviewed EMR data (avail), discussed with nursing, discussed with case mgmt, reviewed images, amended to note Attending Assessment/Plan: Patient admitted with left foot osteomyelitis. Podiatry consult and plan for OR as per podiatry. Hold abx and obtain wound OR cultures. RISS and tittrate insulin as needed. NPO past midnight. Rest of plan as above.
[2018-02-28 16:56] VITALS: BP 148/72
--- NOTE | 2018-02-28 18:14 | History & Physical ---
General Information and HPI MD Statement: I, together with residents have seen and examined MARIANGEL BOOKER and documented this H&P. The patient is a 87 year old M who presented with a patient stated chief complaint (.). Source of Information: patient, family Exam Limitations: no limitations History of Present Illness: Patient was referred by Dr. Daly to come to the ER for his black ulcerated left big toe. Patient got his toe cut off by a cutter about 5 months ago. He was seen at [place] on 02/23/2018 and was diagnosed with osteomyelitis. Patient was prescribed Augmentin but he refused to take them due to diarrhea. Patient called Dr. Daly again yesterday stated that his toe was getting worse, and was referred by Dr. Daly to come to ER today. Patient had no toe pain at the moment, but the pain was intermittent, 4-5x per day, and excruciating. Patient also complained of left lower leg being sore and numbness when he walked. Pertinent sx: no fever, no headache, no weight change. 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 Relation not specified for: FH: myocardial infarction Psychosocial History Where do you live? Home Who Do You Live With? spouse Services at Home: None Smoking Status: Never Smoked Functional Ability ADLs Independent: dressing, eating, toileting, bathing. Ambulation: cane Review of Systems Review of Systems Constitutional: Reports: no symptoms. EENTM: Reports: no symptoms. Cardiovascular: Reports: no symptoms. Respiratory: Reports: no symptoms. GI: Reports: no symptoms. Genitourinary: Reports: no symptoms. Musculoskeletal: Reports: joint pain, joint swelling. Skin: Reports: no symptoms. Neurological/Psychological: Reports: numbness, tingling. Hematologic/Endocrine: Reports: no symptoms. Immunologic/Allergic: Reports: no symptoms. All Other Systems: Reviewed and Negative Exam & Diagnostic Data Last 24 Hrs of Vital Signs/I&O Vital Signs Date Time Temp Pulse Resp B/P B/P Pulse O2 O2 Flow FiO2 Mean Ox Delivery Rate 02/28 1656 98.0 80 20 148/72 96 Room Air 02/28 1524 98.2 89 16 158/75 96 Room Air 02/28 1339 97.8 89 17 168/80 98 Room Air 02/28 1231 Room Air Room Air 02/28 1149 97.8 110 18 170/83 97 Room Air Intake & Output 02/28 1600 02/28 0800 02/28 0000 Intake Total 0 Output Total Balance 0 Intake, Oral 0 Patient 140 lb Weight Weight Estimated Measurement Method Physical Exam General Appearance Alert, Oriented X3, Cooperative, No Acute Distress Skin redness and molds in back Skin Temp/Moisture Exam: Warm/Dry HEENT Atraumatic, PERRLA, EOMI Cardiovascular Normal S1, Normal S2, No Murmurs Lungs Clear to Auscultation Abdomen Soft, No Tenderness Neurological Normal Speech, Strength at 5/5 X4 Ext, loss of sensation on left big toe Extremities No Cyanosis, No Edema, bruises on both dorsal feet. , missing part of his left toe nail, black foul-smelling ulcerated lesion on left toe Vascular Normal Pulses Last 24 Hrs of Labs/Gómez: Laboratory Tests 02/28/18 1515: Lactic Acid 1.5 02/28/18 1225: Anion Gap 13, Estimated GFR 57 L, BUN/Creatinine Ratio 13.3, Glucose 153 H, Hemoglobin A1c 5.7, Lactic Acid 2.1, Calcium 9.3, Total Bilirubin 0.5, AST 15 L , ALT 21, Alkaline Phosphatase 59, Troponin I < 0.01, C-Reactive Prot, Quant < 0.5, Total Protein 7.2, Albumin 4.0, Globulin 3.2, Albumin/Globulin Ratio 1.3, PT 12.6 H, INR 1.15, APTT 29, CBC w Diff NO MAN DIFF REQ, RBC 4.08 L, MCV 87.7 , MCH 29.5, MCHC 33.7, RDW 13.9, MPV 8.0, Gran % 65.4, Lymphocytes % 24.6, Monocytes % 6.7, Eosinophils % 2.9, Basophils % 0.4, Absolute Granulocytes 4.4, Absolute Lymphocytes 1.7, Absolute Monocytes 0.5, Absolute Eosinophils 0.2, Absolute Basophils 0, ESR Westergren 20 H Microbiology 02/28 1242 BLOOD: Blood Culture - RECD 02/28 1225 BLOOD: Blood Culture - RECD Diagnostic Data EKG Results tarchycardia Assessment/Plan Assessment: Summary: 87-year-old male with PMH of pre-diabetics, hypertension, PVD presented to ER with black ulcerated lesion on his left toe that was previously diagnosed osteomylitis. Problem list: - Osteomyelitis of left foot. - Hypertension. - Diabetes. - Hypertension. Plan: Osteomyelitis: - Hospitalized patients to Gen Med floor. - Podiatry surgery consult tomorrow to have him debrigement the left big toe. - NPO at midnight to ready for the surgery. - Wound culture in the OR tomorrow. - Follow up on antibiotics. Other problems: - Continue home meds but whether patient accept and comply with meds. DVT prophylaxis. Patient is full code. As Ranked By This Provider Problem List: 1. Peripheral vascular disease 2. Osteomyelitis of toe of left foot Core Measures/Misc (05/06) Sepsis (View protocol) Sepsis Present: No If YES complete Sepsis Event Note If YES complete Sepsis Event Note 1. Peripheral vascular disease 2. Osteomyelitis of toe of left foot Core Measures/Misc (05/06) Sepsis (View protocol) Sepsis Present: No If YES complete Sepsis Event Note If YES complete Sepsis Event Note
--- NOTE | 2018-02-28 20:13 | Cons- Vascular Surgery ---
General Information and HPI Consulting Request Date of Consult: 02/28/18 Requested By: Shayy Mayo MD Reason for Consult: PAD, toe wound/osteo History of Present Illness: 87yoM with known PAD, sent into hospital by podiatry for further eval of nonhealing traumatic wound of left great toe that occurred in October 2017. Pt admits to some discomfort of the toe, though denies leg or foot pain. Workup shows osteomyelitis of left great toe. Vascular consult requested to evaluate for PAD and need for vascular intervention in conjunction with podiatry. Allergies/Medications Allergies: Coded Allergies: No Known Allergies (10/18/17) Home Med List: Amoxicillin/Potassium Clav (Augmentin 875-125 Tablet) 875 MG-125 MG TABLET 1 TAB PO BID Infection Aspirin (Ecotrin*) 81 MG TABLET.DR 81 MG PO DAILY [employer] . Atorvastatin Calcium 10 MG TABLET 10 MG PO 1700 Cholesterol . Hydrochlorothiazide 12.5 MG TABLET 1 TAB PO DAILY HTN Lisinopril 5 MG TABLET 5 MG PO DAILY Blood pressure . Past History Medical History Blood Transfusion Hx: No Cardiovascular: hypertension, PVD Endocrine: prediabetes Other Medical Hx: osteomyelitis of left great toe, Surgical History Pertinent Surgical History: non-contributory Family History Relations & Conditions If Any: SISTER BROTHER, ; Cause: Cancer. Relation not specified for: FH: myocardial infarction Psychosocial History Where Do You Live? Home Who Do You Live With? spouse Services at Home: None Smoking Status: Never Smoked ETOH Use: occasional use Illicit Drug Use: denies illicit drug use Functional Ability ADLs Independent: dressing, eating, toileting, bathing. Ambulation: cane Exam & Diagnostic Data Vital Signs and I&O Vital Signs Date Time Temp Pulse Resp B/P B/P Pulse O2 O2 Flow FiO2 Mean Ox Delivery Rate 02/28 1656 98.0 80 20 148/72 96 Room Air 02/28 1524 98.2 89 16 158/75 96 Room Air 02/28 1339 97.8 89 17 168/80 98 Room Air 02/28 1231 Room Air Room Air 02/28 1149 97.8 110 18 170/83 97 Room Air Intake & Output 02/28 1600 02/28 0800 02/28 0000 02/27 1600 02/27 0800 02/27 0000 Intake Total 0 Output Total Balance 0 Intake, Oral 0 Patient 140 lb Weight Weight Estimated Measurement Method Physical Exam: gen- nad card-s1s2 pulm- no audble wheeze ext- calves soft nt bl. LLE: dry gangrene tip of great toe with decreased sensation at wound. +pt pulse, no dp pulse or signal, foot warm, gross motor intact, nt. RLE: no wounds, +pt pulse, +dp signal, foot warm, gross motor intact, nt. Last 24 Hours of Labs: Laboratory Tests 02/28 02/28 1515 1225 Chemistry Sodium (137 - 145 mmol/L) 144 Potassium (3.5 - 5.1 mmol/L) 4.4 Chloride (98 - 107 mmol/L) 102 Carbon Dioxide (22 - 30 mmol/L) 29 Anion Gap (5 - 16) 13 BUN (9 - 20 mg/dL) 16 Creatinine (0.7 - 1.2 mg/dL) 1.2 Estimated GFR (>60 ml/min) 57 L BUN/Creatinine Ratio (7 - 25 %) 13.3 Glucose (65 - 99 mg/dL) 153 H Hemoglobin A1c (4.2 - 5.8 %) 5.7 Lactic Acid (0.7 - 2.1 mmol/L) 1.5 2.1 Calcium (8.4 - 10.2 mg/dL) 9.3 Total Bilirubin (0.2 - 1.3 mg/dL) 0.5 AST (17 - 59 U/L) 15 L ALT (21 - 72 U/L) 21 Alkaline Phosphatase (< 127 U/L) 59 Troponin I (<0.11 ng/ml) < 0.01 C-Reactive Prot, Quant (<1.0 mg/dL) < 0.5 Total Protein (6.3 - 8.2 g/dL) 7.2 Albumin (3.5 - 5.0 g/dL) 4.0 Globulin (1.9 - 4.2 gm/dL) 3.2 Albumin/Globulin Ratio (1.1 - 2.2 %) 1.3 Coagulation PT (9.4 - 12.5 SEC) 12.6 H INR (0.90 - 1.17) 1.15 APTT (25 - 37 SEC) 29 Hematology CBC w Diff NO MAN DIFF REQ WBC (4.8 - 10.8 /CUMM) 6.8 RBC (4.70 - 6.10 /CUMM) 4.08 L Hgb (14.0 - 18.0 G/DL) 12.1 L Hct (42 - 52 %) 35.8 L MCV (80.0 - 94.0 FL) 87.7 MCH (27.0 - 31.0 PG) 29.5 MCHC (33.0 - 37.0 G/DL) 33.7 RDW (11.5 - 14.5 %) 13.9 Plt Count (130 - 400 /CUMM) 271 MPV (7.4 - 10.4 FL) 8.0 Gran % (42.2 - 75.2 %) 65.4 Lymphocytes % (20.5 - 51.1 %) 24.6 Monocytes % (1.7 - 9.3 %) 6.7 Eosinophils % (0 - 5 %) 2.9 Basophils % (0.0 - 2.0 %) 0.4 Absolute Granulocytes (1.4 - 6.5 /CUMM) 4.4 Absolute Lymphocytes (1.2 - 3.4 /CUMM) 1.7 Absolute Monocytes (0.10 - 0.60 /CUMM) 0.5 Absolute Eosinophils (0.0 - 0.7 /CUMM) 0.2 Absolute Basophils (0.0 - 0.2 /CUMM) 0 ESR Westergren (0 - 10 MM) 20 H Imaging Results: 11/18/2017: arterial US LLE . "left lower extremity moderate-severe hemodynamically femoral-popliteal significant disease. There is no definite inflow disease demonstrated." Assessment/Plan Assessment/Plan A- 87yoM with osteomyelitis and dry gangrene of left great toe, with known PAD. P- DW Dr. Sanders. Imaging from 11/18/17 reviewed. No further imaging needed at this time. Dr. Sanders to see and give any further recs. Foot care per podiatry. Problem List: 1. Peripheral vascular disease 2. Osteomyelitis of toe of left foot Consult Acknowledgment - Thank you for your consult request.
[2018-02-28 22:10] VITALS: BP 160/70
[2018-03-01 06:30] VITALS: BP 160/72
--- NOTE | 2018-03-01 07:04 | PN- Housestaff ---
Roc Reyes 03/01/18 0704: Subjective Follow-up For: Osteomyelitis and Pvd Complaints: no complaints Subjective: Patient seen and examined at bedside, and son present. One incident of pain overnight treated with oxycodone. Otherwise no complaints. Patient in good spirits and looking forward to OR today for left great toe ulcer clean up. Review of Systems Constitutional: Reports: no symptoms. Objective Last 24 Hrs of Vital Signs/I&O Vital Signs Date Time Temp Pulse Resp B/P B/P Pulse O2 O2 Flow FiO2 Mean Ox Delivery Rate 03/01 0630 97.8 82 16 160/72 98 Room Air 02/28 2210 97.9 80 18 160/70 97 Room Air 02/28 1656 98.0 80 20 148/72 96 Room Air 02/28 1524 98.2 89 16 158/75 96 Room Air 02/28 1339 97.8 89 17 168/80 98 Room Air 02/28 1231 Room Air Room Air 02/28 1149 97.8 110 18 170/83 97 Room Air Intake & Output 03/01 1600 03/01 0800 03/01 0000 Intake Total 80 Output Total Balance 80 Intake, Oral 80 Patient 140 lb Weight Weight Reported by Patient Measurement Method Physical Exam General Appearance: Alert, Oriented X3, Cooperative, No Acute Distress Skin: No Rashes Skin Temp/Moisture Exam: Warm/Dry HEENT: Atraumatic, PERRLA, EOMI Neck: Supple, No JVD, No thryomegaly Cardiovascular: Regular Rate, Normal S1, Normal S2, No Murmurs Lungs: Clear to Auscultation, Normal Air Movement Abdomen: Soft, No Tenderness, No Hepatospenomegaly Extremities: No Cyanosis, No Edema, normal pulses on right, decreased on left LE , ulcer on left great toe, missing toenail Current Medications: Current Medications Sig/Tiffanie Start time Last Medication Dose Route Stop Time Status Admin Acetaminophen 650 MG Q6P PRN 02/28 1400 AC PO Acetaminophen 1,000 MG ONCE ONE 02/28 1330 DC N/A 1 UNIT IV 02/28 1344 Oxycodone HCl 5 MG Q6P PRN 02/28 1400 AC 02/28 PO 2135 Oxycodone HCl 10 MG Q6P PRN 02/28 1400 AC PO Sodium Chloride 1,000 ML BOLUS ONE 02/28 1330 DC 02/28 IV 02/28 4048 0257 Last 24 Hrs of Lab/Gómez Results Last 24 Hrs of Labs/Mics: Laboratory Tests 03/01/18 0612: Anion Gap 11, Estimated GFR > 60, BUN/Creatinine Ratio 14.0, CBC w Diff NO MAN DIFF REQ, RBC 3.86 L, MCV 88.6, MCH 29.5, MCHC 33.3, RDW 13.5, MPV 8.2, Gran % 60.7, Lymphocytes % 24.9, Monocytes % 7.3, Eosinophils % 6.4 H, Basophils % 0.7 , Absolute Granulocytes 4.4, Absolute Lymphocytes 1.8, Absolute Monocytes 0.5, Absolute Eosinophils 0.5, Absolute Basophils 0.1 02/28/18 1515: Lactic Acid 1.5 02/28/18 1225: Anion Gap 13, Estimated GFR 57 L, BUN/Creatinine Ratio 13.3, Glucose 153 H, Hemoglobin A1c 5.7, Lactic Acid 2.1, Calcium 9.3, Total Bilirubin 0.5, AST 15 L , ALT 21, Alkaline Phosphatase 59, Troponin I < 0.01, C-Reactive Prot, Quant < 0.5, Total Protein 7.2, Albumin 4.0, Globulin 3.2, Albumin/Globulin Ratio 1.3, PT 12.6 H, INR 1.15, APTT 29, CBC w Diff NO MAN DIFF REQ, RBC 4.08 L, MCV 87.7 , MCH 29.5, MCHC 33.7, RDW 13.9, MPV 8.0, Gran % 65.4, Lymphocytes % 24.6, Monocytes % 6.7, Eosinophils % 2.9, Basophils % 0.4, Absolute Granulocytes 4.4, Absolute Lymphocytes 1.7, Absolute Monocytes 0.5, Absolute Eosinophils 0.2, Absolute Basophils 0, ESR Westergren 20 H Microbiology 02/28 1242 BLOOD: Blood Culture - RECD 02/28 1225 BLOOD: Blood Culture - RECD Assessment/Plan Assessment: 87 year old male who comes to [facility] for surgical treatment of left great toe osteomyelitis. Problem list/plan: Osteomyelitis of the big toe - Admitted to general medicine, vitals per protocol -Consult placed to vascular surgery to evaluate for peripheral vascular disease -Blood cultures drawn in the ER, awaiting results -Pain per pathway PMH of HTN, PVD, pre-diabetes -consult placed to vascular surgery to evaluate for need for intervention -Accu-Cheks 3 times daily before meals -Patient states he does not take any of his recorded home medications; will not be continued Diet: Diabetic, pending NPO at midnight DVT Prophylaxis: Subcu herin and ALPS Patient is full code Problem List: 1. Osteomyelitis 2. Peripheral vascular disease Pain Ratin Pain Location: left great toe Pain Goal: Remain pain free Pain Plan: oxycodone prn Tomorrow's Labs & Rationales: cbc and bep Shayy Mayo 03/01/18 1051: Attending MD Review Statement Attending Statement Attending MD Statement: examined this patient, discuss w/resident/PA/BLOW TORCH BURNER, agreed w/resident/PA/BLOW TORCH BURNER, discussed with family, reviewed EMR data (avail), discussed with nursing, discussed with case mgmt, reviewed images, amended to note Attending Assessment/Plan: Patient denies any new complaints. Patient with pmh of peripheral vascular disease and left toe ulcer now infected and osteomyelitis is admitted after being sent from podiatry office. Chronic non healing ulcer with osteomyeltiis: Patient is planned for OR intervetnion as per podiatry today. Pain controlled. Hold off abx and obtain wound culture OR. Peripheral vascular disease: Vascular surgery consulted with no further imaging for now and follow up. gi/dvt prophylaxis full code.
[2018-03-01 07:48] LABS: ABSOLUTE BASOPHIL COUNT 0.1 /CUMM (0.0-0.2); ABSOLUTE EOSINOPHIL COUNT 0.5 /CUMM (0.0-0.7); ABSOLUTE GRANULOCYTE CT 4.4 /CUMM (1.4-6.5); ABSOLUTE LYMPH COUNT 1.8 /CUMM (1.2-3.4); ABSOLUTE MONOCYTE COUNT 0.5 /CUMM (0.10-0.60); BASOPHIL % 0.7 % (0.0-2.0); EOSINOPHIL % 6.4 % (0-5); GRANULOCYTE % 60.7 % (42.2-75.2); HEMATOCRIT 34.2 % (42-52); MEAN CORPUSCULAR HGB 29.5 PG (27.0-31.0); MEAN CORPUSCULAR HGB CONC 33.3 G/DL (33.0-37.0); MEAN CORPUSCULAR VOLUME 88.6 FL (80.0-94.0); MEAN PLATELET VOLUME 8.2 FL (7.4-10.4); PLATELET COUNT 228 /CUMM (130-400); RBC DISTRIBUTION WIDTH 13.5 % (11.5-14.5); RED BLOOD CELL CT 3.86 /CUMM (4.70-6.10); WHITE BLOOD CELL COUNT 7.3 /CUMM (4.8-10.8)
--- NOTE | 2018-03-01 08:31 | PN- Student ---
Subjective Subjective: Patient was seen and examined at bed side. Patient was reading bible, and listening to music choir. He seemed a little anxious about what will be going next, but otherwise nice and coorporative. He had intense pain on his left great toe and left heel yesterday so the nurse gave him PO Oxycodone one time. Patient was NPO starting at midnight. Goal is to have Dr. Daly coming in today to consult him on vascular surgery and debrigement his left toe. Objective Objective: Physical exam: - Patient is oriented X3, coorporative, and a little anxious. - HEENT: unremarkable, large black mold on his left cheek. - Neck: unremarkable. - Heart: normal heart sound, no additonal murmur nor gallop. - Lungs: CTA. - Abdomen: soft, no tenderness. - Skin: dry, erythema. - Extremities: -Right leg: unremarkable, 5/5 on strength -Left leg: loss of sensation, tenderness on great toe rating 5/10, tenderness on heal rating 10/10 (shocking pain), 5/5 on strength. Imaging: -February 23, 2018 left foot Xray showed osteomyelitis of left distal phalanx of great toe, peripheral vascular calcification of left lower leg, calcaneal spone spur on left heel. Results Results: Laboratory Tests 03/01/18 0612: Anion Gap 11, Estimated GFR > 60, BUN/Creatinine Ratio 14.0, CBC w Diff NO MAN DIFF REQ, RBC 3.86 L, MCV 88.6, MCH 29.5, MCHC 33.3, RDW 13.5, MPV 8.2, Gran % 60.7, Lymphocytes % 24.9, Monocytes % 7.3, Eosinophils % 6.4 H, Basophils % 0.7 , Absolute Granulocytes 4.4, Absolute Lymphocytes 1.8, Absolute Monocytes 0.5, Absolute Eosinophils 0.5, Absolute Basophils 0.1 02/28/18 1515: Lactic Acid 1.5 02/28/18 1225: Anion Gap 13, Estimated GFR 57 L, BUN/Creatinine Ratio 13.3, Glucose 153 H, Hemoglobin A1c 5.7, Lactic Acid 2.1, Calcium 9.3, Total Bilirubin 0.5, AST 15 L , ALT 21, Alkaline Phosphatase 59, Troponin I < 0.01, C-Reactive Prot, Quant < 0.5, Total Protein 7.2, Albumin 4.0, Globulin 3.2, Albumin/Globulin Ratio 1.3, PT 12.6 H, INR 1.15, APTT 29, CBC w Diff NO MAN DIFF REQ, RBC 4.08 L, MCV 87.7 , MCH 29.5, MCHC 33.7, RDW 13.9, MPV 8.0, Gran % 65.4, Lymphocytes % 24.6, Monocytes % 6.7, Eosinophils % 2.9, Basophils % 0.4, Absolute Granulocytes 4.4, Absolute Lymphocytes 1.7, Absolute Monocytes 0.5, Absolute Eosinophils 0.2, Absolute Basophils 0, ESR Westergren 20 H Microbiology 02/28 1242 BLOOD: Blood Culture - RECD 02/28 1225 BLOOD: Blood Culture - RECD Assessment/Plan Assessment: Summary: 87yo male with PMH of PVD, HTN and pre-diabetics presented with osteomyelitis of his left foot. Lab is unremarkable. Left foot Xray showed osteomyelitis of left distal phalanx, PVD of left lower leg, and calcification on left heel. PE showed shocking pain on his left heel, his left great toe, and loss of sensation on left great toe and left lower leg. Also, patient was not compliant with his home meds. Problem list: - Osteomyelitis of left great toe. - PVD. - HTN - Pre-diabetics. Plan: - OR consult with Dr. Daly today regarding vascular surgery and debrigement of his left great toe. - Contine NPO. - Pain med oxycodone prn. - Wound culture is considered after surgery, and possibly starting antibiotics. - DVT prophylaxis. - Patient is full code.
--- NOTE | 2018-03-01 11:34 | PN- Student ---
Subjective Subjective: History and PE was recorded by medical student. Source of Information: patient, family Exam Limitations: no limitations History of Present Illness: Patient was referred by Dr. Daly to come to the ER for his black ulcerated left big toe. Patient got his toe cut off by a cutter about 5 months ago. He was seen at [place] on 02/23/2018 and was diagnosed with osteomyelitis. Patient was prescribed Augmentin but he refused to take them due to diarrhea. Patient called Dr. Daly again yesterday stated that his toe was getting worse, and was referred by Dr. Daly to come to ER today. Patient had no toe pain at the moment, but the pain was intermittent, 4-5x per day, and excruciating. Patient also complained of left lower leg being sore and numbness when he walked. Pertinent sx: no fever, no headache, no weight change. Allergies/Medications Allergies: Coded Allergies: No Known Allergies (10/18/17) Home Med list Amoxicillin/Potassium Clav (Augmentin 875-125 Tablet) 875 MG-125 MG TABLET 1 TAB PO BID Infection Aspirin (Ecotrin*) 81 MG TABLET.DR 81 MG PO DAILY [employer] . Atorvastatin Calcium 10 MG TABLET 10 MG PO 1700 Cholesterol . Hydrochlorothiazide 12.5 MG TABLET 1 TAB PO DAILY HTN Lisinopril 5 MG TABLET 5 MG PO DAILY Blood pressure . 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 Relation not specified for: FH: myocardial infarction Psychosocial History Where do you live? Home Who Do You Live With? spouse Services at Home: None Smoking Status: Never Smoked Review of Systems Constitutional: Reports: no symptoms. EENTM: Reports: no symptoms. Cardiovascular: Reports: no symptoms. Respiratory: Reports: no symptoms. GI: Reports: no symptoms. Genitourinary: Reports: no symptoms. Musculoskeletal: Reports: joint pain, joint swelling. Skin: Reports: no symptoms. Neurological/Psychological: Reports: numbness, tingling. Hematologic/Endocrine: Reports: no symptoms. Immunologic/Allergic: Reports: no symptoms. All Other Systems: Reviewed and Negative Objective Objective: Physical Exam Vital signs: T: 98F oral, P: 80, RR: 20, BP: 148/72, SpO2: 96% General Appearance Alert, Oriented X3, Cooperative, No Acute Distress Skin redness and molds in back Skin Temp/Moisture Exam: Warm/Dry HEENT Atraumatic, PERRLA, EOMI Cardiovascular Normal S1, Normal S2, No Murmurs Lungs Clear to Auscultation Abdomen Soft, No Tenderness Neurological Normal Speech, Strength at 5/5 X4 Ext, loss of sensation on left big toe Extremities No Cyanosis, No Edema, bruises on both dorsal feet. , missing part of his left toe nail, black foul-smelling ulcerated lesion on left toe Vascular Normal Pulses Results Results: 02/28/18 1515: Lactic Acid 1.5 02/28/18 1225: Anion Gap 13, Estimated GFR 57 L, BUN/Creatinine Ratio 13.3, Glucose 153 H, Hemoglobin A1c 5.7, Lactic Acid 2.1, Calcium 9.3, Total Bilirubin 0.5, AST 15 L , ALT 21, Alkaline Phosphatase 59, Troponin I < 0.01, C-Reactive Prot, Quant < 0.5, Total Protein 7.2, Albumin 4.0, Globulin 3.2, Albumin/Globulin Ratio 1.3, PT 12.6 H, INR 1.15, APTT 29, CBC w Diff NO MAN DIFF REQ, RBC 4.08 L, MCV 87.7 , MCH 29.5, MCHC 33.7, RDW 13.9, MPV 8.0, Gran % 65.4, Lymphocytes % 24.6, Monocytes % 6.7, Eosinophils % 2.9, Basophils % 0.4, Absolute Granulocytes 4.4, Absolute Lymphocytes 1.7, Absolute Monocytes 0.5, Absolute Eosinophils 0.2, Absolute Basophils 0, ESR Westergren 20 H Microbiology 02/28 1242 BLOOD: Blood Culture - RECD 02/28 1225 BLOOD: Blood Culture - RECD Assessment/Plan Assessment: Summary: 87-year-old male with PMH of pre-diabetics, hypertension, PVD presented to ER with black ulcerated lesion on his left toe that was previously diagnosed osteomylitis. Problem list: - Osteomyelitis of left foot. - Hypertension. - Diabetes. - Hypertension. Plan: Osteomyelitis: - Hospitalized patients to Gen Med floor. - Podiatry surgery consult tomorrow to have him debrigement the left big toe. - NPO at midnight to ready for the surgery. - Wound culture in the OR tomorrow. - Follow up on antibiotics. Other problems: - Continue home meds but whether patient accept and comply with meds. DVT prophylaxis. Patient is full code. - Follow up on antibiotics. Other problems: - Continue home meds but whether patient accept and comply with meds. DVT prophylaxis. Patient is full code. DVT prophylaxis. Patient is full code.
--- NOTE | 2018-03-01 11:43 | Patient Discharge Instructions ---
Discharge Instructions General Discharge Information Special Instructions: - Please follow up with your primary care physician within 1-2 weeks of discharge. Inform your primary care physician of this admission to [facility]. -Please follow up with Dr. Daly as necessary -Please follow up with Dr. Schreiber as necessary - Continue your current medications per discharge instructions. - Please watch for these problems: Fever, Chills, Nausea, Vomiting, Shortness of Breath, Productive Cough, Chest Pain/Discomfort, Abdominal Pain, Active Bleeding or Bloody urine/stool. Diet Continue normal diet: Yes Activity Full Activity/No Limits: Yes Acute Coronary Syndrome Inclusion Criteria At DC or during hospital stay patient has or had the following: ACS DIAGNOSIS No Discharge Core Measures Meds if any: Prescribed or Continued at Discharge Meds if any: NOT Prescribed or Continued at Discharge Congestive Heart Failure Inclusion Criteria At DC or during hospital stay patient has or had the following: CHF DIAGNOSIS No Discharge Core Measures Meds if any: Prescribed or Continued at Discharge Meds if any: NOT Prescribed or Continued at Discharge Cerebrovascular accident Inclusion Criteria At DC or during hospital stay patient has or had the following: CVA/TIA Diagnosis No Discharge Core Measures Meds if any: Prescribed or Continued at Discharge Meds if any: NOT Prescribed or Continued at Discharge Venous thromboembolism Inclusion Criteria VTE Diagnosis No VTE Type NONE VTE Confirmed by (Test) NONE Discharge Core Measures - Per Current guidelines, there needs to be overlap - treatment for the first 5 days of Warfarin therapy. - If discharged on Warfarin prior to 5 days of - overlap therapy, the patient will need to be - assessed for post discharge needs including - *Post discharge parental anticoagulation - *Warfarin and/or parental anticoagulation education - *Follow up date to check INR post discharge At least 5 days overlap therapy as Inpatient No Meds if any: Prescribed or Continued at Discharge Note: Overlap Therapy is Warfarin and Anticoagulant Meds if any: NOT Prescribed or Continued at Discharge
--- NOTE | 2018-03-01 15:09 | Event Note ---
Event Note Event Note: Mr. Victor M Guzman was seen at [facility] on 03/01/2018 for osteomyelitis of the left great toe and for peripheral vascular disease. He was scheduled for a surgical debridement. On this date Mr. Guzman elected not to pursue the surgery or other treatment, and desired to leave the hospital. During our clinical interaction regarding patient's decision to leave against medical advice (AMA), patient fully acknowledged the risk of their decision and fully understood with full capacity about their conditions, and the options of the treatment. It was explained to him that he has an infection of the bone of the left great toe, that even though it is not causing him distress or producing symptoms that it could do so in the future, that even though it is isolated in the bone at this point that it could become systemic, and that such an even could result in pain, loss of limb or use of limb, and . I personally confirmed the patient's capacity to leave AMA at this time. Mr. Guzman acknowledged his understanding of the consequences of his decision to leave AMA. He was instructed to return to the Emergency Department if he should experience fevers, chills, increasing pain, wound changes or drainage, or any other worrisome symptom. He expressed understanding and agreed.
--- NOTE | 2018-03-01 16:54 | PN- Vascular Surgery ---
Surgical Brief Attending Note Brief Attending Note: Asked to evaluate patient for osteomyelitis of toe and known PAD. Per Dr Schreiber, the patient has been recommended intervention in the past, but has declined. Per the hospital notes, the patient has elected to leave AMA. I am happy to see if he returns to the hospital, or he can be seen as an outpt in our offices.
== END 2018-03-01 17:30 | disposition left against medical advice (07) | DRG 300 ==
LOC: ERH 11:43 → ERHI 13:28 → 2NA 13:28 → ENTRNSPT 15:26 → 2NA 15:48 → EDTRNSPT 15:51 → EDTRNSPTSTS 15:51 → CMPTRNSPT 15:58 → 2NA 03-01 17:30
PROVIDERS: Physician Assistant Medical
DX: E11.52 Type 2 diabetes mellitus with diabetic peripheral angiopathy with gangrene (principal); I96 Gangrene, not elsewhere classified; M86.8X7 Other osteomyelitis, ankle and foot; I10 Essential (primary) hypertension; E11.69 Type 2 diabetes mellitus with other specified complication; Z53.21 Procedure and treatment not carried out due to patient leaving prior to being seen by health care provider
CPT/HCPCS: 2NASP; 36415; 82436; 87040; 93005; 93010; J0131